=== PATIENT | male | born 1965 | race Caucasian/White ===

== ENCOUNTER 2024-04-29 08:27 | Inpatient (IN) | payer MEDICAID, SELFPAY ==
[2024-04-29] VITALS (17 sets, daily range): BP systolic 122–168; BP diastolic 81–121; PULSE 91–137; RESP 16–92; TEMP 36.5–36.9; O2SAT 94–95; BMI 48.6
--- NOTE | 2024-04-29 08:33 | EKG_ITS ---
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
--- NOTE | 2024-04-29 09:01 | PD.EDRME ---
Rapid Medical Screening Exam [facility] Arrival date/time: 04/29/24 08:27 58-year-old male with no known medical history presents to the emergency room with a chief complaint of shortness of breath with exertion and also when laying down. Patient states he also wakes up with swelling to his bilateral extremities. Patient states he smokes 3 packs of cigarettes a day, and has not seen a doctor in years. Patient denies any chest pain or abdominal pain. I have greeted and performed a focused initial assessment of this patient. A comprehensive ED assessment and evaluation of the patient, analysis of all test results, and completion of the medical decision making process will be conducted by additional ED providers. Chief Complaint: Shortness of Breath/Dyspnea Time Seen by Provider: 04/29/24 09:15 Vital signs: Vital Signs Temperature 97.8 F 04/29/24 08:59 Pulse Rate 137 H 04/29/24 08:59 Blood Pressure 168/116 H 04/29/24 08:59 Pulse Oximetry (%) 95 04/29/24 08:59 Oxygen Delivery Method Room Air 04/29/24 08:59 Vital signs reviewed by provider: Yes
--- NOTE | 2024-04-29 09:21 | XR_ITS ---
Examination: AP chest single view TECHNIQUE: AP portable upright chest single view Exam date and time: April 29, 2024 0936 hours INDICATIONS: Shortness of breath today. FINDINGS: Mild heart failure Mild enlargement cardiac contour Prominent vascular congestion Early perihilar edema IMPRESSION: Early heart failure
[2024-04-29] MEDS: DILTIAZEM INJ 5 MG/ML VIAL 5 ML 15 MG IV (09:31)
[2024-04-29 09:46] LABS: Basophils % (Auto) 0 % (0-2.5); Eosinophils % (Auto) 0 % (0-10); Hemoglobin 14.9 g/dL (13.5-16.0); Immature Granulocytes % (Auto) 1 % (0-0); Immature Granulocytes Auto 0.05 Thou/mm3 (0.00-0.00); Lymphocytes # (Auto) 1.3 Thou/mm3 (1.0-4.8); Lymphocytes % (Auto) 13 % (10-50); Mean Corpuscular HGB Conc 31.7 g/dl (31.0-37.0); Mean Corpuscular Hemoglobin 29.9 pg (25.0-35.0); Mean Corpuscular Volume 94 fL (80-100); Monocytes # (Auto) 0.2 Thou/mm3 (0.0-0.8); Monocytes % (Auto) 2 % (0-12); Neutrophils # (Auto) 8.4 Thou/mm3 (1.8-7.7); Neutrophils % (Auto) 84 % (37-80); Nucleated Red Blood Cell % 0 /100 WBC (0); Platelet Count 202 Thou/mm3 (140-440); RDW Standard Deviation 49.5 fL (35.1-43.9); Red Blood Count 4.98 Miln/mm3 (4.50-5.90)
--- NOTE | 2024-04-29 10:01 | PC.NURSE ---
Pt states he has been feeling SOB, reports he had a cough a couple weeks ago, but now only symptom is SOB. States he has been healthy, but does not go to doctor. Pt in agreement w/POC, denies any pain at this time. Call kay in reach.
[2024-04-29 10:05] LABS: INR 1.1 (0.9-1.3); Partial Thromboplastin Time 28.8 Seconds (22.0-36.0); Prothrombin Time 11.6 Seconds (9.0-12.2)
[2024-04-29 10:09] LABS: Alanine Aminotransferase 26 U/L (10-49); Albumin, Serum 4.4 gm/dL (3.5-5.0); Albumin/Globulin Ratio 1.3 (1.2-2.2); Alkaline Phosphatase 98 U/L (46-116); Anion Gap 7 (7-16); Aspartate Amino Transferase 26 U/L (0-34); BUN/Creatinine Ratio 11 Ratio (12-20); Bilirubin,Total 0.4 mg/dL (0.3-1.2); Blood Urea Nitrogen 13 mg/dL (9-23); Calcium 9.4 mg/dL (8.3-10.6); Calcium (Corrected) 9.4 mg/dL (8.5-10.1); Carbon Dioxide 27.1 mMol/L (20.0-31.0); Chloride 108 mMol/L (98-107); Creatinine (Component) 1.2 mg/dL (0.6-1.3); Estimated Creatinine Clearance 95.9 mL/min (>60); Globulin 3.4 gm/dL (2.3-3.5); Glucose 117 mg/dL (74-106); Lipase 28 U/L (12-53); Magnesium 1.8 mg/dL (1.6-2.6); Osmolality,Calculated 284 (275-295); Potassium 4.6 mMol/L (3.4-5.1); Sodium 142 mMol/L (136-145); Total Protein 7.8 gm/dL (5.7-8.2); Troponin I < 0.020 ng/mL (0.0-0.045); eGFR > 60 See Note
--- NOTE | 2024-04-29 11:09 | PD.EDSOB ---
ED SOB =RME/HPI General Chief Complaint: Shortness of Breath/Dyspnea Stated Complaint: SOB worse last night Time Seen by Provider: 04/29/24 09:15 Arrival date/time: 04/29/24 08:27 RME / HPI RME / HPI Narrative: 04/29/24 08:27 58-year-old male with no known medical history presents to the emergency room with a chief complaint of shortness of breath with exertion and also when laying down. Patient states he also wakes up with swelling to his bilateral extremities. Patient states he smokes 3 packs of cigarettes a day, and has not seen a doctor in years. Patient denies any chest pain or abdominal pain. I have greeted and performed a focused initial assessment of this patient. A comprehensive ED assessment and evaluation of the patient, analysis of all test results, and completion of the medical decision making process will be conducted by additional ED providers. DR. MIR BONE ED EVALUATION: 58 year male presents to the Emergency Department with complaint of dyspnea on exertion and shortness of breath when laying down. Symptmos are moderate. Assocated symptoms include bilateral leg edema. Patient denies any chest pain, cough, abdominal pain, vomiting, diarrhea, or any other symptoms at this time. PMHx: Denies any PMHx, surgeries, daily medications, or known allergies. Social Hx: Smokes cigarettes. Related Data Previous Rx's ?Medication ?Instructions ?Recorded apixaban 5 mg tablet (Eliquis) 5 mg PO BID 30 days #60 tabs 05/02/24 diltiazem HCl 240 mg 240 mg PO QDAY #30 caps 05/02/24 capsule,extended release 24 hr (Cardizem CD) fluticasone fur. 100 mcg-umeclid 1 inh inhalation QDAY #28 ea 05/02/24 62.5 mcg-vilant 25 mcg inhalat.powder (Trelegy Ellipta) furosemide 40 mg tablet (Lasix) 40 mg PO QDAY #30 tabs 05/02/24 losartan 25 mg tablet 25 mg PO QDAY 30 days #30 tabs 05/02/24 nicotine 14 mg/24 hr daily 14 mg topical 1XD 28 days #28 ea 05/02/24 transdermal patch (Nicoderm CQ) Allergies Allergy/AdvReac Type Severity Reaction Status Date / Time NKA* Allergy Uncoded 10/19/14 10:43 Review of Systems Review of Systems Systems Reviewed: All systems reviewed, normal except as documented Narrative Review of Systems: GEN: No fever, no chills, no weight loss, + bilateral leg edema EYES: No discharge, no visual changes, no pain HEENT: No ear pain, no congestion, no sore throat PULM: + shortness of breath, no cough, no congestion CV: No chest pain, + dyspnea on exertion, no palpitations GI: No nausea, no vomiting, no diarrhea, no pain, no constipation : No frequency, no urgency and no dysuria MUSC/SKEL: No joint pain, no back pain SKIN: No rash PSYCH: No hallucinations, no depression HEME/LYMPH: No easy bleeding or bruising tendencies NEURO: No weakness, no headache Past Medical History Past Medical History CARDIAC: Negative Cardiac Disorders or Congestive Heart Failure RESPIRATORY: Negative Chronic Obstructive Pulmonary Disease (COPD) or Asthma GENITOURINARY: Negative Renal Disease ENDOCRINE: Negative Diabetes Mellitus Type 1 or Diabetes Mellitus Type 2 HEMATOLOGIC: Negative Sickle Cell Disease Social History SMOKING STATUS: Current every day smoker SUBSTANCE USE: does not use ALCOHOL: Never ED Exam Narrative Physical exam: GENERAL APPEARANCE: alert and oriented x 4, well-developed, well-nourished, no acute distress VITALS: All vitals were reviewed and the pulse ox is 95% on room air, which is normal according to my interpretation. HEENT: Normocephalic, atraumatic; pupils equal, round, reactive to light; EOMI; mucous membranes pink, moist; oropharynx clear NECK: Supple LUNGS: CTABL; no wheezes, no rales, no rhonchi HEART: Regular rate, regular rhythm; normal S1, S2; no murmurs ABDOMEN: non distended; normal BS; soft, no tenderness, no guarding, no rebound; no masses, no organomegaly, no hernia BACK: no CVA tenderness EXTREMITIES: atraumatic; no edema NEUROLOGIC: awake; alert and oriented x4; cranial nerves II-XII grossly intact; no focal sensory or motor deficits PSYCHIATRIC: appropriate mood and affect SKIN: warm, dry, normal color; no rashes Course Course Course Narrative: 1200: Patient was signed out to Dr. Parmar. Past medical, surgical, social and family history reviewed. Vitals and home medications reviewed. Results and treatment plan discussed. They will assume the care of the patient at this time and will follow the patient. Quality Measures none Orders Category Date Time Status Bedside COVID-19 Antigen Test NOW Care 04/29/24 09:01 Completed Bedside Influenza A&B Antigen Test NOW Care 04/29/24 09:[address] Screening NOW Care 04/29/24 12:59 Completed Guest Specialist NOW Care 04/29/24 09:19 Completed EKG (ED ONLY) *Do not use* NOW Care 04/29/24 08:[address] angio chest Stat Exams 04/29/24 12:59 Completed EKG (ED Only) Stat Exams 04/29/24 08:33 Draft XR chest 1V portable Stat Exams 04/29/24 09:21 Completed B-Type Natriuretic Peptide Stat Lab 04/29/24 09:22 Completed CBC Stat Lab 04/29/24 09:22 Completed Comprehensive Metabolic Panel Stat Lab 04/29/24 09:22 Completed Lipase Stat Lab 04/29/24 09:22 Completed Magnesium Stat Lab 04/29/24 09:22 Completed Partial Thromboplastin Time Stat Lab 04/29/24 09:22 Completed Prothrombin Time with INR Stat Lab 04/29/24 09:22 Completed Troponin I Stat Lab 04/29/24 09:22 Completed Diltiazem Inj [Cardizem Inj] Med 04/29/24 13:00 Discontinued 10 mg IV X1 ONE Diltiazem Inj [Cardizem Inj] Med 04/29/24 17:31 Discontinued 10 mg IV X1 ONE Diltiazem Inj [Cardizem Inj] Med 04/29/24 09:22 Discontinued 15 mg IV X1 ONE cloNIDine HCL [Catapres] Med 04/29/24 09:01 Discontinued 0.1 mg PO X1 ONE Vital Signs Vital signs: Vital Signs Temperature 97.8 F 04/29/24 08:59 Pulse Rate 137 H 04/29/24 08:59 Blood Pressure 168/116 H 04/29/24 08:59 Pulse Oximetry (%) 95 04/29/24 08:59 Oxygen Delivery Method Room Air 04/29/24 08:59 Shortness of Breath / Dyspnea MDM Narrative MDM Narrative:: ITari, am scribing for and in the presence of Dr. Stone. Patient data External records reviewed:: None Clinical information provided by:: patient Social determinants that could affect healthcare access:: other (specify) (Smokes cigarettes. ) Patient has the following chronic illnesses:: Denies any PMHx, surgeries, daily medications, or known allergies. How is presenting disease/condition affected by chronic disease/condition?: no chronic disease Evaluation data The following diagnostics were reviewed and interpreted by me:: lab results, radiology exam(s) and EKG tracing(s) Lab and/or radiology exams considered but not ordered:: none Interpretation Summary: Procedure(s): XR chest 1V portable Accession Number(s): [id number] cc: Johann Lugo MD; Esther Stone MD~ Examination: AP chest single view TECHNIQUE: AP portable upright chest single view Exam date and time: April 29, 2024 0936 hours INDICATIONS: Shortness of breath today. FINDINGS: Mild heart failure Mild enlargement cardiac contour Prominent vascular congestion Early perihilar edema IMPRESSION: Early heart failure Dictated By: Johann Lugo MD Medications / Prescriptions Medications or Prescriptions considered but not ordered:: none Medication administrations:: Medication Administration History Discontinued Medications Acetaminophen (Acetaminophen 325 Mg Tablet) 650 mg PO Q6H PRN PRN Reason: Fever >100 or pain 1-3 Stop: 05/29/24 18:26 Apixaban (Apixaban 2.5 Mg Tablet) 5 mg PO BID COUNT INCLUDES THE [facility] Stop: 05/29/24 20:59 Last Admin: 05/02/24 08:34 Dose: 5 mg Documented By: Admin: 05/01/24 20:35 Dose: 5 mg Documented By: Admin: 05/01/24 08:41 Dose: 5 mg Documented By: Admin: 04/30/24 21:17 Dose: 5 mg Documented By: Admin: 04/30/24 08:06 Dose: 5 mg Documented By: Admin: 04/29/24 21:07 Dose: 5 mg Documented By: LONA Azithromycin (Azithromycin 250 Mg Tablet) 500 mg PO X1 ONE Stop: 04/29/24 19:07 Last Admin: 04/29/24 19:27 Dose: 500 mg Documented By: LONA Azithromycin (Azithromycin 250 Mg Tablet) 250 mg PO QDAY COUNT INCLUDES THE [facility] Stop: 05/07/24 08:59 Azithromycin (Azithromycin Inj 500 Mg Vial) Confirm Administered Dose 500 mg IV .STK-MED ONE Stop: 04/30/24 07:54 Last Admin: 04/30/24 08:12 Dose: Not Given Documented By: KAREN Non-Admin Reason: Override Medication Clonidine (Clonidine Hcl 0.1 Mg Tablet) 0.1 mg PO X1 ONE Stop: 04/29/24 09:02 Last Admin: 04/29/24 09:28 Dose: Not Given Documented By: KWAME Non-Admin Reason: Discontinued Diltiazem HCl (Diltiazem Inj 5 Mg/Ml Vial 5 Ml) 15 mg IV X1 ONE Stop: 04/29/24 09:23 Last Admin: 04/29/24 09:31 Dose: 15 mg Documented By: KWAME Diltiazem HCl (Diltiazem Inj 5 Mg/Ml Vial 5 Ml) 10 mg IV X1 ONE Stop: 04/29/24 13:01 Last Admin: 04/29/24 13:33 Dose: 10 mg Documented By: KWAME Diltiazem HCl (Diltiazem Inj 5 Mg/Ml Vial 5 Ml) 10 mg IV X1 ONE Stop: 04/29/24 17:32 Last Admin: 04/29/24 19:36 Dose: 10 mg Documented By: LONA Diltiazem HCl (Diltiazem Cd 120 Mg Capcr) 240 mg PO QDAY COUNT INCLUDES THE [facility] Stop: 05/31/24 12:59 Last Admin: 05/02/24 08:34 Dose: 240 mg Documented By: Admin: 05/01/24 13:33 Dose: 240 mg Documented By: GABRIELA Furosemide (Furosemide Inj 10 Mg/Ml 4ml Vial) 40 mg IVP QDAY COUNT INCLUDES THE [facility] Stop: 05/29/24 18:44 Last Admin: 05/02/24 08:36 Dose: 40 mg Documented By: Admin: 05/01/24 08:41 Dose: 40 mg Documented By: Admin: 04/30/24 08:05 Dose: 40 mg Documented By: Admin: 04/29/24 19:33 Dose: 40 mg Documented By: LONA Heparin Sodium (Porcine) (Heparin Sod Inj 5000 Unit/Ml Vial) 5,000 unit SC Q12H DUSTY Stop: 05/13/24 18:29 Last Admin: 04/29/24 19:31 Dose: 5,000 unit Documented By: LONA Co-signed By: VARINDER Magnesium Sulfate (Magnesium Sulfate Ivpb) 2 gm in 50 mls @ 25 mls/hr IV X1 ONE Stop: 04/29/24 20:34 Last Admin: 04/29/24 20:55 Dose: 25 mls/hr Documented By: LONA Diltiazem HCl 125 mg/ Dextrose 125 mls @ 5 mls/hr IV .Q24H COUNT INCLUDES THE [facility] Stop: 05/29/24 18:37 Last Admin: 04/29/24 20:31 Dose: 5 mg/hr, 5 mls/hr Documented By: LONA Azithromycin 250 mg/ Sodium (Chloride) 250 mls @ 250 mls/hr IV QDAY DUSTY Stop: 05/06/24 18:39 Last Infusion: 05/01/24 13:18 Dose: Infused Documented By: Admin: 05/01/24 08:42 Dose: 250 mls/hr Documented By: Infusion: 04/30/24 11:24 Dose: Infused Documented By: Admin: 04/30/24 10:24 Dose: 250 mls/hr Documented By: Admin: 04/29/24 21:02 Dose: Not Given Documented By: LONA Non-Admin Reason: Other, see note Diltiazem HCl 125 mg/ Dextrose 125 mls @ 10 mls/hr IV .[id number] COUNT INCLUDES THE [facility] Stop: 05/30/24 08:45 Last Admin: 04/30/24 10:22 Dose: 10 mg/hr, 10 mls/hr Documented By: KAREN Diltiazem HCl 125 mg/ Sodium (Chloride) 125 mls @ 10 mls/hr IV .[id number] COUNT INCLUDES THE [facility] Stop: 05/30/24 08:47 Last Admin: 05/01/24 13:17 Dose: Not Given Documented By: GABRIELA Non-Admin Reason: Discontinued Admin: 04/30/24 23:54 Dose: 10 mg/hr, 10 mls/hr Documented By: Infusion: 04/30/24 23:54 Dose: Infused Documented By: Admin: 04/30/24 12:03 Dose: 10 mg/hr, 10 mls/hr Documented By: KAREN Ipratropium [place] (Ipratropium Rt 0.5 Mg/ 2.5 Ml Nebu) 0.5 mg INH Q4HRRT COUNT INCLUDES THE [facility] Stop: 05/29/24 18:59 Last Admin: 04/30/24 07:28 Dose: Not Given Documented By: GATO Non-Admin Reason: Patient Refused Admin: 04/30/24 01:19 Dose: 0.5 mg Documented By: Admin: 04/29/24 22:10 Dose: Not Given Documented By: FAUSTINA Non-Admin Reason: RT unaware Admin: 04/29/24 22:09 Dose: 0.5 mg Documented By: FAUSTINA Ipratropium [employer] [place] (Ipratropium Rt 0.5 Mg/ 2.5 Ml Nebu) 0.5 mg INH Q4HRRT PRN PRN Reason: prn Stop: 05/29/24 18:59 Ipratropium [employer] [place] (Ipratropium Rt 0.5 Mg/ 2.5 Ml Nebu) 0.5 mg INH Q4HRRT PRN; Protocol PRN Reason: SHORTNESS OF BREATH OR WHEEZE Stop: 05/29/24 18:59 Levalbuterol HCl (Levalbuterol Rt 1.25 Mg/0.5 Ml Nebu) 1.25 mg INH Q6HRRT COUNT INCLUDES THE [facility] Stop: 05/29/24 18:59 Last Admin: 04/30/24 07:28 Dose: Not Given Documented By: GATO Non-Admin Reason: Patient Refused Admin: 04/30/24 01:19 Dose: 1.25 mg Documented By: Admin: 04/29/24 22:11 Dose: Not Given Documented By: FAUSTINA Non-Admin Reason: RT unaware Levalbuterol HCl (Levalbuterol Rt 1.25 Mg/0.5 Ml Nebu) 1.25 mg INH Q6HRRT PRN; Protocol PRN Reason: SHORTNESS OF BREATH OR WHEEZE Stop: 05/29/24 18:59 Losartan Potassium (Losartan Potassium 25 Mg Tablet) 25 mg PO QDAY COUNT INCLUDES THE [facility] Stop: 06/01/24 10:14 Last Admin: 05/02/24 12:22 Dose: 25 mg Documented By: DAVID Melatonin (Melatonin 3 Mg Tablet) 6 mg PO [facility] Stop: 06/01/24 20:59 Methylprednisolone Sodium Succinate (Methylprednisolone Sod Succ 40 Mg Vial) 40 mg IVP QDAY COUNT INCLUDES THE [facility] Stop: 05/06/24 18:44 Last Admin: 05/02/24 08:33 Dose: 40 mg Documented By: Admin: 05/01/24 08:41 Dose: 40 mg Documented By: Admin: 04/30/24 08:05 Dose: 40 mg Documented By: Admin: 04/29/24 19:28 Dose: 40 mg Documented By: LONA Nicotine (Nicotine Patch 21 Mg/24 Hr Patch.Td24) 21 mg TOP X1 ONE Stop: 04/29/24 18:03 Last Admin: 04/29/24 20:28 Dose: 21 mg Documented By: LONA Nicotine (Nicotine Patch 21 Mg/24 Hr Patch.Td24) 21 mg TOP X1 ONE Stop: 05/01/24 09:26 Last Admin: 05/01/24 12:34 Dose: 21 mg Documented By: GABRIELA Ondansetron HCl (Ondansetron Inj 2 Mg/Ml Inj 2 Ml) 4 mg IV Q6H PRN; Protocol PRN Reason: NAUSEA OR VOMITING Stop: 05/29/24 18:26 Potassium Chloride (Potassium Chloride 20 Meq Tabcr) 20 meq PO X1 ONE Stop: 05/01/24 07:17 Last Admin: 05/01/24 08:44 Dose: 20 meq Documented By: GABRIELA Sodium Chloride (Sodium Chloride Rt Areli 0.9% 3 Ml Nebu) 3 ml INH PRN PRN PRN Reason: SOLN Stop: 05/29/24 18:26 see above Consultations Consultation(s) initiated? (list below): No Diagnosis Shortness of Breath Differential Diagnosis: acute exacerbation of chronic obstructive airways disease, congestive heart failure, community acquired pneumonia and pulmonary embolism Most likely diagnosis given after review of the tests above:: No official diagnoses at this time, still pending diagnostic tests. Patient signout to Dr. Parmar. Admission Indicated Admission indicated?: not indicated Explain why admission is indicated or not indicated:: No final disposition plan at this time, still pending diagnostic tests. Patient signout to Dr. Parmar. Admission Request Was there a request for admission?: No Disposition Plan Disposition Plan: other (specify) (Patient signout to Dr. Parmar.) Discharge Plan Plan Patient Disposition: Admit Acute Care w/in Hospital Patient condition on transfer: Stable Problem List Clinical Impression: Pulmonary nodule, Atrial flutter, Acute exacerbation of CHF (congestive heart failure)
[2024-04-29 11:39] LABS: B-Type Natriuretic Peptide 212 pg/mL (0-100)
--- NOTE | 2024-04-29 12:59 | XR_ITS ---
Examination: CTA chest with intravenous contrast 2-D reconstructions 3-D reconstructions, vascular Date and time of exam: April 29, 2024 1443 hours INDICATIONS: Onset chest pain SOB today CTDI: vol (mGy) 41.5 DLP: (mGycm) 739 Technique: Multiple axial sections of the thorax have been obtained. 3 mm slice thickness, from below the hemidiaphragms to above the apices of the lungs. Mediastinal and lung density settings have been obtained. 2-D sagittal and coronal reconstructions. 3-D angiographic renderings, 3-D volume renderings, 3D post processing, vascular maximum intensity projections obtained. Contrast administered is 100 cc Isovue-370. Low dose protocols were performed. One or more of the following dose reduction techniques were used; automated exposure control, adjustment of the mA and/or KV according to patient size, use of iterative reconstruction technique. Findings: No thoracic aortic aneurysmal dilatation. No filling defects in the pulmonary artery branches 4 mm pulmonary nodule left upper lobe 2 mm pulmonary nodule right upper lobe 4 mm pulmonary nodule right upper lobe COPD with areas of airspace destruction No lobar pneumonia No focal liver or splenic lesions. No gallstones No hydronephrosis IMPRESSION: COPD Negative for pulmonary artery emboli Noncalcified pulmonary nodules as above, with this study as baseline recommend 6 month follow-up CT chest without contrast
[2024-04-29] MEDS: DILTIAZEM INJ 5 MG/ML VIAL 5 ML 10 MG IV ×2 (13:33→19:36)
--- NOTE | 2024-04-29 14:05 | PD.EDADDENDU ---
Emergency Room Addendum Addendum Narrative: 1200: Care assumed from Dr. Stone, the previous shift emergency physician. Past medical, surgical, social and family history reviewed. Vitals and home medications reviewed. I will assume the care of the patient at this time. Please refer to the emergency department record for history and examination from initial visit.? Physical exam by me shows patient under no acute distress at this time. 1735: Discussed test HPI, PMHx, lab, radiology results and/or management with hospitalist. Will admit for further evaluation and management. Accepts patient for admission. Diagnoses: Pulmonary nodule, atrial flutter, acute exacerbation of CHF RADIOLOGY Procedure(s): CT angio chest Accession Number(s): [id number] cc: Johann Lugo MD; NO PRIMARY/FAMILY,PHYSICIAN; Lis Parmar MD~ Examination: CTA chest with intravenous contrast 2-D reconstructions 3-D reconstructions, vascular Date and time of exam: April 29, 2024 1443 hours INDICATIONS: Onset chest pain SOB today CTDI: vol (mGy) 41.5 DLP: (mGycm) 739 Technique: Multiple axial sections of the thorax have been obtained. 3 mm slice thickness, from below the hemidiaphragms to above the apices of the lungs. Mediastinal and lung density settings have been obtained. 2-D sagittal and coronal reconstructions. 3-D angiographic renderings, 3-D volume renderings, 3D post processing, vascular maximum intensity projections obtained. Contrast administered is 100 cc Isovue-370. Low dose protocols were performed. One or more of the following dose reduction techniques were used; automated exposure control, adjustment of the mA and/or KV according to patient size, use of iterative reconstruction technique. Findings: No thoracic aortic aneurysmal dilatation. No filling defects in the pulmonary artery branches 4 mm pulmonary nodule left upper lobe 2 mm pulmonary nodule right upper lobe 4 mm pulmonary nodule right upper lobe COPD with areas of airspace destruction No lobar pneumonia No focal liver or splenic lesions. No gallstones No hydronephrosis IMPRESSION: COPD Negative for pulmonary artery emboli Noncalcified pulmonary nodules as above, with this study as baseline recommend 6 month follow-up CT chest without contrast Dictated By: Johann Lugo MD
--- NOTE | 2024-04-29 18:35 | ECHO_ITS ---
Transthoracic Echo Report Ht (in): 69 Wt (lb): 329 Exam Location: Echo Lab Status: Emergency Tail Sawyer: Zhane Floyd Indications: Procedure Performed: BP: 124 / 78 HR: 72 Technical Quality: Very technically difficult study MEASUREMENTS (Male / Female) Normal Values 2D ECHO LV Ejection Fraction MOD 4C 46.6 % LV Cardiac Index MOD 4C 2020.2 cm?/min?m? LV Ejection Fraction 4C AL 46.6 % LV Cardiac Index 4C AL 2083.5 cm?/min?m? LA Volume Index 24.4 cm?/m? 16 - 28 cm?/m? DOPPLER AV Peak Velocity 139.0 cm/s AV Peak Gradient 7.7 mmHg AV Mean Gradient 4.0 mmHg AV Velocity Time Integral 21.6 cm LVOT Peak Velocity 139.0 cm/s LVOT Peak Gradient 7.7 mmHg LVOT Velocity Time Integral 27.3 cm FINDINGS Left Ventricle Normal left ventricular size, wall thickness, systolic function with no obvious regional wall motion abnormalities. Normal left ventricular diastolic filling pattern for age. The ejection fraction is visually estimated at 55-60%. Right Ventricle The right ventricle is normal in size and systolic function. Left Atrium The left atrium is normal by two-dimensional, color flow and Doppler imaging with no structural abnormalities, no thrombus formation present. Right Atrium The right atrium is normal by two-dimensional imaging, color flow and Doppler imaging with no structural abnormalities, no thrombus formation present. Atrial Septum The interatrial septum appears normal with no evidence of a shunt. Aorta The aorta is normal by two-dimensional, color flow and Doppler interrogation. Mitral Valve The mitral valve is normal by two-dimensional, color flow and Doppler interrogation. There is no significant mitral valve regurgitation, stenosis or prolapse. Aortic Valve The aortic valve is trileaflet and normal by two-dimensional, color flow and Doppler interrogation. There is no significant aortic valve regurgitation. Tricuspid Valve The tricuspid valve is normal by two-dimensional, color flow and Doppler interrogation. There is no significant tricuspid valve regurgitation. Pulmonic Valve The pulmonic valve is not well visualized. There is no significant pulmonic valve regurgitation. Vessels The pulmonary artery appears normal. The inferior vena cava pulmonary and hepatic veins appear normal. Pericardium The pericardium is normal by two-dimensional imaging. There is no significant pericardial effusion. CONCLUSIONS Indiction; Afib w RVR Tercxhincally difficult study with limited iamges. Normal LV size and function. Estimated EF 55-60%. Diastilic dysfunction present but cannot garde due to Afib. Normal RV size and function. Trcae TR and MR. Mildly dilated LA. Luis Almanza (Electronically Signed) Final Date: 01 May 2024 12:40
--- NOTE | 2024-04-29 18:39 | ESHP_ITS ---
Documentation for date of: 04/29/24 HPI History of Present Illness History of present illness: Joo is a 58 y/o male with past medical history of morbid obesity comes in for an evaluation of shortness of breath that has been worsening with associated dry cough but no chest pain. Patient reports that he has been feeling worse over some time now with his shortness of breath that used to be more so on exertion, however now it is also present at rest. He denies having any chest pain or palpitations at the time. He says that he was sick about a week ago with some upper respiratory infections, but denies any other sick contacts. Says that his shortness of breath was associated with a worsening cough that he started describing as he felt he was dry heaving as nothing was coming out. He says he took a steroid pill from his sister in which she uses for possible COPD but it did not help. He says he has had a chronic cough for a while but this has been worsening as well. He says that he also notices shortness of breath while laying down but denies having any leg swelling. 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 Denies using a CPAP. Patient says that he does not go to doctors and has been pretty healthy for his whole life. He says that he gets short of breath when climbing up stairs, while at work, and would get short of breath with walking 1 block. He denies ever having symptoms as bad as this until now. As he had worsened he thought it would be best as his brother drive him to the ER to get evaluated. Denies a history of COPD and never seeing a stitch separator. Denies ever having a blood clot in his lungs or his legs. Says he has bowel movements every 1 to 2 days, can be up to 3 days when he drives trucks. ED course: Patient arrived to the ED with a temperature of 98, heart rate of 137, blood pressure of 160/116, saturating at 95% room air. He was worked up and was found to have a sodium of 142, potassium 4.6, bicarb of 27, BUN/creatinine of 13 and 1.2, glucose of 117, white count of 10, hemoglobin 15, magnesium 1.8, AST ALT 20 and 26 respectively, BNP of 212, lipase of 28. Chest x-ray did show some pulmonary edema and vascular congestion as well as early heart failure pattern. EKG was done and showed a flutter pattern with a 2-1 block. A second EKG was obtained which showed A-fib with RVR rate in the 135's. Patient was given Cardizem 10 mg x 1 and then given Cardizem 15 mg x 1. Medicine was consulted and patient was admitted for further evaluation Past medical history: Morbid obesity Surgeries: None Allergies no known allergies Meds: Does not take any medicines Family history: Dad of lung cancer, his mother had a triple vessel bypass and valve replacement of some sort and shortly after it broke in 2000, sister may have COPD, diabetes runs in family as well, mother may have also had hypertension Social hx: Patient was born in [place], partly raised in [place] then moved to a town [place] of [facility]. He returned to [place] about 15 years ago. 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 Patient has smoked for over 45 years about 2 packs a day (90 pack years). 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 He drives trucks for about 11 to 14 hours a day. He does endorse eating a lot of red meat and eating bad. He also says he eats a lot of carbs including bread. Denies any IV drug use, however has used LSD and cocaine in the past. He also says that he has never been a heavy drinker and does not drink anymore at all. He grew up partly in [place] as well Review of Systems Review of Systems Narrative Review of Systems: Constitutional: No fever, chills, fatigue, weakness, weight loss HEENT: No eye pain, vision loss, ear pain, hearing loss, dysphagia, Cardiovascular: No chest pain, palpitations, edema, pain with walking Respiratory: Positive cough, positive shortness of breath, no wheezing GI: No NVD, abdominal pain, constipation, blood in stool, loss of appetite, heartburn Extremities: No presence of pitting edema MSK: No back pain, joint pain, joint swelling Neuro: No dizziness, numbness, weakness, headaches, seizures, tremors Psych: No anxiety, depression Exam Vital Signs Temp Pulse Resp BP Pulse Ox O2 Del Method 98.5 F 109 H 20 159/101 H 95 Room Air 04/29/24 18:25 04/29/24 18:25 04/29/24 18:25 04/29/24 18:25 04/29/24 18:25 04/29/24 18:25 Narrative Exam General: AAOx3, NAD, wearing a hat, pleasant bearded male looks older than he is, morbidly obese HEENT: Moist mucous membranes, conjunctiva clear, EOMI, PERRLA, no teeth, pupillary reflex intact bilaterally Cardiovascular: S1, S2, radial pulses +2 bilat, irregularly irregular, tachycardic Pulmonary: Diffuse wheezing heard throughout lung amanda, no crackles heard on auscultation, no cough was present at the time GI: Bowel sounds present, however patient does feel a bit firm unlikely distended Extremities: No presence of trace or pitting edema in lower extremities bilaterally, dorsalis pedis pulses +2 bilaterally Neuro: AAOx3, no focal motor or sensory deficits in the UE or LE bilat Psych: Good judgement, thought and behavior. Cooperative Results: Labs 04/30/24 04:35 04/30/24 04:35 Labs: Short CBC 04/29/24 Range/Units 09:22 WBC 10.0 (3.8-10.6) Thou/mm3 Hgb 14.9 (13.5-16.0) g/dL Hct 47.0 (41.0-53.0) % Plt Count 202 (140-440) Thou/mm3 BMP 04/29/24 09:22 Sodium 142 Potassium 4.6 Chloride 108 H Carbon Dioxide 27.1 BUN 13 Creatinine 1.2 Glucose 117 H Calcium 9.4 Cardiac Enzymes 04/29/24 Range/Units 09:22 Troponin I < 0.020 (0.0-0.045) ng/mL Liver Function 04/29/24 Range/Units 09:22 Total Bilirubin 0.4 (0.3-1.2) mg/dL AST 26 (0-34) U/L ALT 26 (10-49) U/L Alkaline Phosphatase 98 (46-116) U/L Albumin 4.4 (3.5-5.0) gm/dL Quality Measures Quality Measures none Medications Home Medications and Allergies Home Medications ?Medication ?Instructions ?Recorded ?Confirmed ?Type No Known Home Medications 04/30/2410/15 History Allergies Allergy/AdvReac Type Severity Reaction Status Date / Time NKA* Allergy Uncoded 01/09/14 10:43 Visit Medications Acetaminophen (Acetaminophen 325 Mg Tablet) 650 mg PO Q6H PRN PRN Reason: Fever >100 or pain 1-3 Stop: 05/29/24 18:26 Furosemide (Furosemide Inj 10 Mg/Ml 4ml Vial) 40 mg IVP QDAY [facility] Stop: 05/29/24 18:44 Heparin Sodium (Porcine) (Heparin Sod Inj 5000 Unit/Ml Vial) 5,000 unit SC Q12H DUSTY Stop: 05/13/24 18:29 Magnesium Sulfate (Magnesium Sulfate Ivpb) 2 gm in 50 mls @ 25 mls/hr IV X1 ONE Stop: 04/29/24 20:34 Diltiazem HCl (Diltiazem In D5w 125 Mg) 125 mg in 125 mls @ 5 mls/hr IV .Q24H [facility] Stop: 05/29/24 18:37 Ipratropium [place] (Ipratropium Rt 0.5 Mg/ 2.5 Ml Nebu) 0.5 mg INH Q4HRRT DUSTY Stop: 05/29/24 18:59 Levalbuterol HCl (Levalbuterol Rt 1.25 Mg/0.5 Ml Nebu) 1.25 mg INH Q6HRRT DUSTY Stop: 05/29/24 18:59 Methylprednisolone Sodium Succinate (Methylprednisolone Sod Succ 40 Mg Vial) 40 mg IVP QDAY [facility] Stop: 05/06/24 18:44 Ondansetron HCl (Ondansetron Inj 2 Mg/Ml Inj 2 Ml) 4 mg IV Q6H PRN; Protocol PRN Reason: NAUSEA OR VOMITING Stop: 05/29/24 18:26 Sodium Chloride (Sodium Chloride Rt Areli 0.9% 3 Ml Nebu) 3 ml INH PRN PRN PRN Reason: SOLN Stop: 05/29/24 18:26 Discontinued Medications Clonidine (Clonidine Hcl 0.1 Mg Tablet) 0.1 mg PO X1 ONE Stop: 04/29/24 09:02 Last Admin: 04/29/24 09:28 Dose: Not Given Diltiazem HCl (Diltiazem Inj 5 Mg/Ml Vial 5 Ml) 15 mg IV X1 ONE Stop: 04/29/24 09:23 Last Admin: 04/29/24 09:31 Dose: 15 mg Diltiazem HCl (Diltiazem Inj 5 Mg/Ml Vial 5 Ml) 10 mg IV X1 ONE Stop: 04/29/24 13:01 Last Admin: 04/29/24 13:33 Dose: 10 mg Diltiazem HCl (Diltiazem Inj 5 Mg/Ml Vial 5 Ml) 10 mg IV X1 ONE Stop: 04/29/24 17:32 Nicotine (Nicotine Patch 21 Mg/24 Hr Patch.Td24) 21 mg TOP X1 ONE Stop: 04/29/24 18:03 Assessment & Plan Plan Assessment Joo is a 58 y/o male with past medical history of morbid obesity who was admitted for A-fib with RVR and possible COPD exacerbation. #A-fib with RVR #A flutter, resolved [id number] HAS-BLED:0 Rate:130s Rhythm: Irregularly irregular AC: None Pt may be in decompensated heart failure at this time If pt has HFpEF -> Cardizem If HFrEF and not in decompensation -> Beta blockers (Coreg 3.125 p.o. twice daily or metoprolol succinate 25 p.o., can be given up to 200) If cannot receive beta-blockers, go with Amio or digoxin Pt has no documented history, however, [id number] and HAS-BLED scores likely to be increased once we establish diagnoses Plan: ?Follow-up echo ?Cardiology consulted, appreciate recs ?Keep potassium and magnesium above 4 and 2 respectively to avoid any cardiac arrhythmias ?Continue with Dilt drip, 5 mg/hr, titrate up to ten if blood pressure is able ?Start Eliquis 5 mg BID PO #? Acute decompensated heart failure Plan: ?Cardiology consulted, appreciate recs ?Strict JULIANN's ?Daily weights ?Lasix 40 mg IV daily ?Follow up with Echo ?Keep potassium and magnesium above 4 and 2 respectively to avoid any cardiac arrhythmias #? COPD exacerbation #? Obesity hypoventilation syndrome Patient does have extensive smoking history roughly 90 pack years Patient does not use oxygen at home Patient does seem to be wheezing on physical exam Patient has been getting more short of breath Patient will need formal PFT for diagnosis Lungs did not seem hyperexpanded on chest x-ray Plan: ?Solu-Medrol 40 mg IV daily ?Oxygen as needed to maintain 88 to 92% ?Levalbuterol from nebulizer breathing treatments ?Azithromycin 500 mg loading, 250 mg after #Health Maintenance Disposition: Telemetry DVT prophylaxis: Heparin q12h GI prophylaxis:None indicated at this time Diet:Cardiac CODE STATUS:Full Patient seen and care discussed with my senior resident, Dr. Hernández, and my attending physician, Dr. Luis Lomax, PGY-1 Attending Provider Attestation/Addendum I reviewed labs, imaging, EKG, home medications and prior available records. Face to face evaluation was performed by me. I have personally examined the patient and discussed assessment and plan with the IM team. I reviewed the resident note and agree with the plan with exceptions as below. Atrial fibrillation/flutter with RVR New onset CHF COPD exacerbation Tobacco use Morbid obesity Started diltiazem drip Start IV Lasix Start DuoNebs Start systemic corticosteroids Ordered echocardiogram Consult cardiology Counseled the patient regarding the importance of smoking cessation
[2024-04-29] MEDS: AZITHROMYCIN 250 MG TABLET 500 MG PO (19:27)
[2024-04-29] MEDS: HEPARIN SOD INJ 5000 UNIT/ML VIAL SC (19:31)
[2024-04-29] MEDS: FUROSEMIDE INJ 10 MG/ML 4ML VIAL 40 MG IVP (19:33)
[2024-04-29] MEDS: NICOTINE PATCH 21 MG/24 HR PATCH.TD24 TOP (20:28)
[2024-04-29] MEDS: DILTIAZEM INJ 125 MG in DEXTROSE 5%-WATER 100 ML IV (20:31)
[2024-04-29] MEDS: Magnesium Sulfate 2 GM Ivpb 2 GM/50 ML BAG IV (20:55)
--- NOTE | 2024-04-29 21:03 | PC.NURSE ---
IV Zithromax not given, Hospitalist infomred. 500 mg po givne.
[2024-04-29] MEDS: APIXABAN 2.5 MG TABLET 5 MG PO (21:07)
[2024-04-29] MEDS: IPRATROPIUM RT 0.5 MG/ 2.5 ML NEBU INH (22:09)
[2024-04-30] VITALS (13 sets, daily range): BP systolic 123–150; BP diastolic 70–97; PULSE 69–106; RESP 17–96; TEMP 36.1–36.8; O2SAT 92–96
[2024-04-30] MEDS: IPRATROPIUM RT 0.5 MG/ 2.5 ML NEBU INH (01:19)
[2024-04-30] MEDS: LEVALBUTEROL RT 1.25 MG/0.5 ML NEBU INH (01:19)
[2024-04-30 05:42] LABS: Basophils % (Auto) 0 % (0-2.5); Eosinophils % (Auto) 0 % (0-10); Hematocrit 47.8 % (41.0-53.0); Hemoglobin 15.3 g/dL (13.5-16.0); Immature Granulocytes % (Auto) 0 % (0-0); Immature Granulocytes Auto 0.03 Thou/mm3 (0.00-0.00); Lymphocytes # (Auto) 1.7 Thou/mm3 (1.0-4.8); Lymphocytes % (Auto) 17 % (10-50); Mean Corpuscular Hemoglobin 30.2 pg (25.0-35.0); Mean Corpuscular Volume 94 fL (80-100); Monocytes # (Auto) 0.3 Thou/mm3 (0.0-0.8); Monocytes % (Auto) 3 % (0-12); Neutrophils # (Auto) 7.9 Thou/mm3 (1.8-7.7); Neutrophils % (Auto) 80 % (37-80); Nucleated Red Blood Cell % 0 /100 WBC (0); Platelet Count 161 Thou/mm3 (140-440); Red Blood Count 5.07 Miln/mm3 (4.50-5.90); White Blood Count 9.9 Thou/mm3 (3.8-10.6)
[2024-04-30 06:02] LABS: INR 1.1 (0.9-1.3); Partial Thromboplastin Time 29.8 Seconds (22.0-36.0); Prothrombin Time 11.5 Seconds (9.0-12.2)
[2024-04-30 06:07] LABS: Alanine Aminotransferase 23 U/L (10-49); Albumin, Serum 4.5 gm/dL (3.5-5.0); Albumin/Globulin Ratio 1.6 (1.2-2.2); Alkaline Phosphatase 96 U/L (46-116); Anion Gap 5 (7-16); Aspartate Amino Transferase 18 U/L (0-34); BUN/Creatinine Ratio 16 Ratio (12-20); Bilirubin,Total 0.3 mg/dL (0.3-1.2); Blood Urea Nitrogen 14 mg/dL (9-23); Calcium 9.3 mg/dL (8.3-10.6); Calcium (Corrected) 9.3 mg/dL (8.5-10.1); Cardiac Risk Estimate 3.8 RATIO (4.0-6.7); Chloride 105 mMol/L (98-107); Cholesterol 136 mg/dL (132-200); Creatinine (Component) 0.9 mg/dL (0.6-1.3); Estimated Creatinine Clearance 127.8 mL/min (>60); Globulin 2.9 gm/dL (2.3-3.5); Glucose 113 mg/dL (74-106); HDL Cholesterol 36 mg/dL (40-60); LDL Cholesterol,Calculated 88 mg/dL (0-130); Magnesium 2.3 mg/dL (1.6-2.6); Osmolality,Calculated 277 (275-295); Phosphorous 4.2 mg/dL (2.4-5.1); Potassium 4.7 mMol/L (3.4-5.1); Sodium 138 mMol/L (136-145); Thyroid Stimulating Hormone 0.81 uIU/mL (0.55-4.78); Total Protein 7.4 gm/dL (5.7-8.2); Triglycerides 60 mg/dL (30-150); eGFR > 60 See Note
--- NOTE | 2024-04-30 07:34 | PC.NURSE ---
Pt. refusing bed alarm but pt. and night RN Lori report pt. is steady on feet. Pt. educated on fall precautions and agrees to call for help if needed.
[2024-04-30] MEDS: FUROSEMIDE INJ 10 MG/ML 4ML VIAL 40 MG IVP (08:05)
[2024-04-30] MEDS: APIXABAN 2.5 MG TABLET 5 MG PO ×2 (08:06→21:17)
[2024-04-30 09:54] LABS: Glucose Estimated Average 114 mg/dL (80-131); Hemoglobin A1C 5.6 % Hgb (4.8-6.0)
--- NOTE | 2024-04-30 10:14 | PD.RESPRO ---
Documentation for date of: 04/30/24 Subjective Subjective Interval history: 04/30: Exam Vital Signs Temp Pulse Resp BP Pulse Ox O2 Del Method 97.8 F 81 20 124/97 H 95 Room Air 04/30/24 04:00 04/30/24 08:05 04/30/24 07:28 04/30/24 08:05 04/30/24 07:28 04/30/24 04:00 Objective Labs 04/30/24 04:35 04/30/24 04:35 Labs: Laboratory Results - last 24 hr 04/29/24 04/30/24 09:22 04:35 WBC 9.9 RBC 5.07 Hgb 15.3 Hct 47.8 MCV 94 MCH 30.2 MCHC 32.0 RDW Std Deviation 49.0 H Plt Count 161 D Neut % (Auto) 80 Lymph % (Auto) 17 [place] % (Auto) 3 Eos % (Auto) 0 Baso % (Auto) 0 Neut # (Auto) 7.9 H Lymph # (Auto) 1.7 [place] # (Auto) 0.3 Eos # (Auto) 0.0 Baso # (Auto) 0.0 Immature Gran # (Auto) 0.03 H Absolute Nucleated RBC 0.00 Immature Gran % 0 Nucleated RBC % 0 PT 11.5 INR 1.1 APTT 29.8 Sodium 138 Potassium 4.7 Chloride 105 Carbon Dioxide 28.0 Anion Gap 5 L BUN 14 Creatinine 0.9 Estim Creat Clear Calc 127.8 eGFR > 60 BUN/Creatinine Ratio [address] Glu mg/dL 114 Hemoglobin A1c 5.6 Calculated Osmolality 277 Calcium 9.3 Corrected Calcium 9.3 Phosphorus 4.2 Magnesium 2.3 Total Bilirubin 0.3 AST 18 ALT 23 Alkaline Phosphatase 96 B-Natriuretic Peptide 212 H Total Protein 7.4 Albumin 4.5 Globulin 2.9 Albumin/Globulin Ratio 1.6 Triglycerides 60 Cholesterol 136 LDL Cholesterol, Calc 88 HDL Cholesterol 36 L Cholesterol/HDL Ratio 3.8 L TSH 0.81 Quality Measures Quality Measures none Assessment & Plan Assessment Current Active Medications: Generic Name Dose Route Start Last Admin Trade Name Freq PRN Reason Stop Dose Admin Acetaminophen 650 mg 04/29/24 18:27 Acetaminophen 325 Mg Tablet PO 05/29/24 18:26 Q6H PRN Fever >100 or pain 1-3 Apixaban 5 mg 04/29/24 21:00 04/30/24 08:06 Apixaban 2.5 Mg Tablet PO 05/29/24 20:59 5 mg BID DUSTY Administration Furosemide 40 mg 04/29/24 18:45 04/30/24 08:05 Furosemide Inj 10 Mg/Ml 4ml Vial IVP 05/29/24 18:44 40 mg QDAY DUSTY Administration Azithromycin 250 mg/ Sodium 250 mls @ 250 mls/hr 04/29/24 18:40 04/29/24 21:02 Chloride IV 05/06/24 18:39 Not Given QDAY DUSTY Diltiazem HCl 125 mg/ Dextrose 125 mls @ 10 mls/hr 04/30/24 08:48 IV 05/30/24 08:45 .[id number] DUSTY 10 MG/HR Ipratropium [place] 0.5 mg 04/30/24 09:16 Ipratropium Rt 0.5 Mg/ 2.5 Ml Nebu INH 05/29/24 18:59 Q4HRRT PRN SHORTNESS OF BREATH OR WHEEZE Protocol Levalbuterol HCl 1.25 mg 04/30/24 09:14 Levalbuterol Rt 1.25 Mg/0.5 Ml Nebu INH 05/29/24 18:59 Q6HRRT PRN SHORTNESS OF BREATH OR WHEEZE Protocol Methylprednisolone Sodium Succinate 40 mg 04/29/24 18:45 04/30/24 08:05 Methylprednisolone Sod Succ 40 Mg Vial IVP 05/06/24 18:44 40 mg QDAY DUSTY Administration Ondansetron HCl 4 mg 04/29/24 18:27 Ondansetron Inj 2 Mg/Ml Inj 2 Ml IV 05/29/24 18:26 Q6H PRN NAUSEA OR VOMITING Protocol Sodium Chloride 3 ml 04/29/24 18:27 Sodium Chloride Rt Areli 0.9% 3 Ml Nebu INH 05/29/24 18:26 PRN PRN SOLN
--- NOTE | 2024-04-30 10:16 | ESCONSULT_ITS ---
HPI Data of Consult Requesting Physician: Andrés Smith MD Admitting Provider: Andrés Smith MD Attending Provider: Andrés Smith MD Primary Care Provider: Physician No Primary/Family Consult Narrative History of present illness: Mr. Ge is a 58-year-old male with no significant past medical history other than morbid obesity and heavy tobacco dependency presenting to the ED complaining of worsening shortness of breath with mild dry cough. Patient states that he recently noticed that he has been increasingly short of breath especially on exertion however in the last couple days he noticed that he has been also short of breath while resting. Patient denies any chest pain, pressure, palpitations, dizziness, or syncopal episodes. 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 However he did mention he had flulike symptoms about a week ago for which he did not take any antibiotics or seek medical attention. Although patient denies any cardiac problems or denies seeing a clarity developer, he states for some time he has been fatigued even though he get a full night of rest patient denies ever being diagnosed with obstructive sleep apnea and denies ever using a CPAP. Patient also has never been diagnosed with COPD however patient admits to smoking 2 packs of cigarettes daily for the past 47 years. Patient is heavily counseled against smoking and the harm and damage it can cause to his major arteries and his heart. Patient mentioned he understands the consequences of smoking however he has the desire to quit smoking but he does not mentally feel ready or capable of quitting. Patient denies using any inhalers or home oxygen. 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 Which he contributes the main reason why he spoke so much is because when he is on these long drives he changed smokes and lites is cigarette after cigarette. ED course On arrival in the ED patient blood pressure is 160/116, heart rate of 137, saturating on room air. Lab findings include hemoglobin 14.9, hematocrit 47, sodium 142, potassium 4.6, chloride 108, blood glucose 117, BNP 212 EKG: A-fib with RVR with nonspecific T wave abnormality Chest x-ray: Findings include mild/early heart failure, mild enlargement cardiac contour or, prominent vascular congestion, early perihilar edema Chest CTA: COPD, negative for pulmonary artery emboli, noncalcified pulmonary nodules (4 mm in the left upper lobe, 2 mm and 4 mm in the right upper lobe) PMH: Morbid obesity, tobacco dependence Family history: Pt is not and does not have children. Mom with cardiac history of hypertension, triple vessel bypass in valve replacement. Dad: Lung cancer cc:: cc: Andrés Smith MD Review of Systems Review of Systems Systems Reviewed: All systems reviewed, normal except as documented Exam Vital Signs Temp Pulse Resp BP Pulse Ox O2 Del Method 97.8 F 81 20 124/97 H 95 Room Air 04/30/24 04:00 04/30/24 08:05 04/30/24 07:28 04/30/24 08:05 04/30/24 07:28 04/30/24 04:00 Narrative Exam GENERAL: morbidly obese male, A&Ox3 . Awake, Not in acute distress, saturating on room air NEURO: no focal neurological deficits HEENT: Atraumatic, Normocephalic. mucous membranes moist. Eyes open, symmetrical, & clear HEART: Normal Heart Sounds LUNGS: Clear to auscultation with no wheezing or crackles. ABDOMEN: soft, non-distended, non-tender, bowel sounds heard, no guarding or rebound tenderness SKIN: No Rash or ecchymoses EXTREMITIES: trace pitting edema bilaterally on LE, tenderness, able to move all 4 extremities, pedal pulses palpated Results Labs 05/01/24 04:30 05/01/24 04:30 Labs: Short CBC 04/30/24 Range/Units 04:35 WBC 9.9 (3.8-10.6) Thou/mm3 Hgb 15.3 (13.5-16.0) g/dL Hct 47.8 (41.0-53.0) % Plt Count 161 D (140-440) Thou/mm3 BMP 04/30/24 04:35 Sodium 138 Potassium 4.7 Chloride 105 Carbon Dioxide 28.0 BUN 14 Creatinine 0.9 Glucose 113 H Calcium 9.3 Liver Function 04/30/24 Range/Units 04:35 Total Bilirubin 0.3 (0.3-1.2) mg/dL AST 18 (0-34) U/L ALT 23 (10-49) U/L Alkaline Phosphatase 96 (46-116) U/L Albumin 4.5 (3.5-5.0) gm/dL Quality Measures Quality Measures none Medications Home Medications and Allergies Home Medications ?Medication ?Instructions ?Recorded ?Confirmed ?Type No Known Home Medications 04/30/2410/15 History Allergies Allergy/AdvReac Type Severity Reaction Status Date / Time NKA* Allergy Uncoded 01/09/14 10:43 Visit Medications Acetaminophen (Acetaminophen 325 Mg Tablet) 650 mg PO Q6H PRN PRN Reason: Fever >100 or pain 1-3 Stop: 05/29/24 18:26 Apixaban (Apixaban 2.5 Mg Tablet) 5 mg PO BID [facility] Stop: 05/29/24 20:59 Last Admin: 04/30/24 08:06 Dose: 5 mg Furosemide (Furosemide Inj 10 Mg/Ml 4ml Vial) 40 mg IVP QDAY [facility] Stop: 05/29/24 18:44 Last Admin: 04/30/24 08:05 Dose: 40 mg Azithromycin 250 mg/ Sodium (Chloride) 250 mls @ 250 mls/hr IV QDAY [facility] Stop: 05/06/24 18:39 Last Admin: 04/29/24 21:02 Dose: Not Given Diltiazem HCl 125 mg/ Dextrose 125 mls @ 10 mls/hr IV .[id number] [facility] Stop: 05/30/24 08:45 Ipratropium [place] (Ipratropium Rt 0.5 Mg/ 2.5 Ml Nebu) 0.5 mg INH Q4HRRT PRN; Protocol PRN Reason: SHORTNESS OF BREATH OR WHEEZE Stop: 05/29/24 18:59 Levalbuterol HCl (Levalbuterol Rt 1.25 Mg/0.5 Ml Nebu) 1.25 mg INH Q6HRRT PRN; Protocol PRN Reason: SHORTNESS OF BREATH OR WHEEZE Stop: 05/29/24 18:59 Methylprednisolone Sodium Succinate (Methylprednisolone Sod Succ 40 Mg Vial) 40 mg IVP QDAY [facility] Stop: 05/06/24 18:44 Last Admin: 04/30/24 08:05 Dose: 40 mg Ondansetron HCl (Ondansetron Inj 2 Mg/Ml Inj 2 Ml) 4 mg IV Q6H PRN; Protocol PRN Reason: NAUSEA OR VOMITING Stop: 05/29/24 18:26 Sodium Chloride (Sodium Chloride Rt Areli 0.9% 3 Ml Nebu) 3 ml INH PRN PRN PRN Reason: SOLN Stop: 05/29/24 18:26 Discontinued Medications Azithromycin (Azithromycin 250 Mg Tablet) 500 mg PO X1 ONE Stop: 04/29/24 19:07 Last Admin: 04/29/24 19:27 Dose: 500 mg Azithromycin (Azithromycin 250 Mg Tablet) 250 mg PO QDAY [facility] Stop: 05/07/24 08:59 Clonidine (Clonidine Hcl 0.1 Mg Tablet) 0.1 mg PO X1 ONE Stop: 04/29/24 09:02 Last Admin: 04/29/24 09:28 Dose: Not Given Diltiazem HCl (Diltiazem Inj 5 Mg/Ml Vial 5 Ml) 15 mg IV X1 ONE Stop: 04/29/24 09:23 Last Admin: 04/29/24 09:31 Dose: 15 mg Diltiazem HCl (Diltiazem Inj 5 Mg/Ml Vial 5 Ml) 10 mg IV X1 ONE Stop: 04/29/24 13:01 Last Admin: 04/29/24 13:33 Dose: 10 mg Diltiazem HCl (Diltiazem Inj 5 Mg/Ml Vial 5 Ml) 10 mg IV X1 ONE Stop: 04/29/24 17:32 Last Admin: 04/29/24 19:36 Dose: 10 mg Heparin Sodium (Porcine) (Heparin Sod Inj 5000 Unit/Ml Vial) 5,000 unit SC Q12H [facility] Stop: 05/13/24 18:29 Last Admin: 04/29/24 19:31 Dose: 5,000 unit Magnesium Sulfate (Magnesium Sulfate Ivpb) 2 gm in 50 mls @ 25 mls/hr IV X1 ONE Stop: 04/29/24 20:34 Last Admin: 04/29/24 20:55 Dose: 25 mls/hr Diltiazem HCl 125 mg/ Dextrose 125 mls @ 5 mls/hr IV .Q24H [facility] Stop: 05/29/24 18:37 Last Admin: 04/29/24 20:31 Dose: 5 mg/hr, 5 mls/hr Ipratropium [place] (Ipratropium Rt 0.5 Mg/ 2.5 Ml Nebu) 0.5 mg INH Q4HRRT [facility] Stop: 05/29/24 18:59 Last Admin: 04/30/24 07:28 Dose: Not Given Ipratropium [place] (Ipratropium Rt 0.5 Mg/ 2.5 Ml Nebu) 0.5 mg INH Q4HRRT PRN PRN Reason: prn Stop: 05/29/24 18:59 Levalbuterol HCl (Levalbuterol Rt 1.25 Mg/0.5 Ml Nebu) 1.25 mg INH Q6HRRT DUSTY Stop: 05/29/24 18:59 Last Admin: 04/30/24 07:28 Dose: Not Given Nicotine (Nicotine Patch 21 Mg/24 Hr Patch.Td24) 21 mg TOP X1 ONE Stop: 04/29/24 18:03 Last Admin: 04/29/24 20:28 Dose: 21 mg Assessment & Plan Plan Mr. Ge is a 58-year-old male with no significant past medical history other than morbid obesity and heavy tobacco dependency presenting to the ED complaining of worsening shortness of breath with mild dry cough. Patient states that he recently noticed that he has been increasingly short of breath especially on exertion however in the last couple days he noticed that he has been also short of breath while resting. Cardiology is consulted for new A-fib with RVR and possible a flutter, Pt is on diltiazam drip at 10mg/hr #A-fib with concurrent A-flutter Pt was initially HR was in the 130's EKG findings and tele montiored reviewed and appears pt remain in Afib with RVR with concurrent a flutter at times. Pt was started on diltiazam drip 5mg/hr yesterday which is increased to 10mg/hr as Pts HR jumps to 150's -keep potassium above 5 and magnesium above 2 at all times. [id number]:0, pt will not require anticoagulation for afib at this time as Pt is at low risk for cardio embolic event. 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 Pt is started on eliquis 5mg BID PO due to his risk factors. #Acute decompensated heart failure- although pt. doesn't appear to be in fluid overload. there is trace pitting edema bilaterally in lower extremities. Will continue lasix 40mg IV daily. echocardiogrma is ordered #Tobacco use disorder- Pt admits to smoking 2 packs/day for 47 years. Pt is heavily counseled against smoking and educated on the harm it causes on his arteries and heart. Nicotine patch is ordered will inpatient. Primary hospitalist team to consider nicotine patch taper upon discharge. 21mg x 2 weeks, 14mg x 2 weeks and 7mg x 2 weeks #Morbid obesity- Pt BMI is 48.7, and sedentary lifestyle as well has diet consistent of fast food. Pt is advised to lose weight and adapt to healthy diet. Assessment and plan discussed with my attending physician Dr. Archie Currie (PGY-1)- Internal medicine resident Attending Provider Attestation/Addendum I have personally seen and examined the patient separately on the above date of service and discussed the plan of care with the resident. I reviewed the resident Dr. Pradeep Currie consultation progress note and agree with the resident findings and plan in the note above and have also edited the documentation to reflect my findings and plan. A 58-year-old male with a past medical history of morbid obesity with a BMI of 47, chain smoker with more than [id number] smoking history presented to the emergency department for worsening shortness of breath along with some dry cough. Patient described this is incited shortness of breath over the past few weeks which is initially on exertion now worsening and is present even at rest. Denies any Chest pain chest pressure or palpitations or leg swelling or orthopnea or PND or dizziness or syncope or fall. Denies any kind of fever or chills but he did have some upper respiratory infection over the last week or so and he still has some dry cough with heaving. In the emergency department initial vitals showed heart rate of 137, blood pressure 160/116 mmHg, 95% room air saturations afebrile. Labs showed sodium 142 potassium 4.6 BUN 13 creatinine 1.2 glucose 117, WBC 10, hemoglobin 15 magnesium 1.8, troponins 2 sets negative, LFTs normal. EKG showed atrial fibrillation/flutter with no other acute ST-T changes. Chest x-ray showed some mild pulmonary Bottomer Operator condition. Patient received a total of 25 mg of Cardizem IV at 10 and milligrams and 15 mg. 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 Family history significant for heart disease with triple- vessel bypass and valve replacement for mother as well as diabetes and hypertension. No major surgeries or other past medical history. Assessment and plan: 1. Atrial fibrillation/flutter with RVR-new onset 2. Congestive heart failure exacerbation-new onset 3. Essential hypertension uncontrolled 4. Morbid obesity 5. Chronic active smoker with more than [id number] smoking history Atrial fibrillation with RVR-patient is a 25 mg of IV diltiazem in the emergency room initially 10 Mg and later 15 Mg. Recommend to start the patient on diltiazem drip IV at 5 mg/h and uptitrated to 10 mg/h and 15 mg/h based on the blood pressure. Will eventually transition to Cardizem CD or metoprolol XL based on the echocardiogram. Chads Vascor for the patient is to be considered new onset CHF as well as essential hypertension otherwise 1 even with essential hypertension. Patient's weight is 149 kg and recommend to start anticoagulation Eliquis 5 mg twice daily for now. New onset CHF exacerbation-proBNP was 212 patient is morbidly obese and proBNP is elevated and not low which is typical for patients with morbid obesity. Chest x-ray did show mild vascular congestion. Patient started on Lasix 40 mg IV once daily for now and will monitor his improvement. Strict input output, daily weights and 2 g sodium diet. Echocardiogram ordered for further evaluation of systolic versus diastolic CHF with right ventricular failure. Check TSH free T4 and lipid profile for further cardiac restratification. Essential hypertension:-New onset-patient with no previous history of hypertension but blood pressure has been elevated since admission initial blood pressure was 160/111 mmHg. Will start the patient on diltiazem drip for now and high blood pressure room for the rate control and then patient can be started on rest of the medications. If rate is well-controlled and blood pressure is still high then Patient is started on DUDLEY or ARB. Morbid obesity-patient control regarding weight loss and healthy cardiac diet Chronic active smoker with more than [id number] smoking history-patient has been counseled extensively to quit smoking completely and started on a nicotine patch. Management of rest of the medical conditions as per primary team and other consultants. Thank you for the consult and allowing me to participate in the care of the patient. Cardiology will continue to follow. Luis Almanza M.D. Interventional Cardiology
[2024-04-30] MEDS: DILTIAZEM INJ 125 MG in DEXTROSE 5%-WATER 100 ML 10 MG IV (10:22)
[2024-04-30] MEDS: AZITHROMYCIN INJ 250 MG in SODIUM CHLORIDE 0.9% 250 ML 250 ML IV (10:24)
--- NOTE | 2024-04-30 10:45 | ESPR_ITS ---
<Statement entered by Armand Hernández MD - 04/30/24 17:35> Documentation for date of: 04/30/24 Subjective Subjective Interval history: Patient was seen and examined at bedside this AM. No acute events overnight. Patient tolerating diet, adequate urine output and mentation is at baseline. Patient endorses improvement of SOB, now sats 95-96% on RA Tele shows HR 130s --> 70-80bpm , in sinus rhythm. Cardiology increased Dilt gtt from 5mcg -> 10mcg/hr Exam Vital Signs Temp Pulse Resp BP Pulse Ox O2 Del Method 97.0 F 70 20 123/90 H 93 L Room Air 04/30/24 08:00 04/30/24 10:22 04/30/24 08:00 04/30/24 10:22 04/30/24 08:00 04/30/24 08:00 Narrative Exam Constitutional Alert, oriented x4 and comfortable on RA. Obese BMI 49 HEENT Vision grossly intact. Patent nares. Trachea midline. Respiratory Chest normal on inspection and soft bi-basilar crackles on auscultation. Cardiovascular S1 and S2 audible, RRR. No murmurs or carotid bruit. No gross JVD. Abdominal Soft, distended and non tender to palpation in all quadrants. BS + Genitourinary No bladder tenderness, no flank pain. Normal to palpation. Musculoskeletal Extremities tone within normal limits. 1+ LE edema. Neurological CN II - XII grossly intact. Extremity motor and sensation grossly intact. Skin Warm, dry and intact. No apparent lesions. Psychiatric Patient has a good affect, is cooperative. Objective Labs 05/01/24 04:30 05/01/24 04:30 Labs: Laboratory Results - last 24 hr 04/29/24 04/30/24 09:22 04:35 WBC 9.9 RBC 5.07 Hgb 15.3 Hct 47.8 MCV 94 MCH 30.2 MCHC 32.0 RDW Std Deviation 49.0 H Plt Count 161 D Neut % (Auto) 80 Lymph % (Auto) 17 Pierce % (Auto) 3 Eos % (Auto) 0 Baso % (Auto) 0 Neut # (Auto) 7.9 H Lymph # (Auto) 1.7 Pierce # (Auto) 0.3 Eos # (Auto) 0.0 Baso # (Auto) 0.0 Immature Gran # (Auto) 0.03 H Absolute Nucleated RBC 0.00 Immature Gran % 0 Nucleated RBC % 0 PT 11.5 INR 1.1 APTT 29.8 Sodium 138 Potassium 4.7 Chloride 105 Carbon Dioxide 28.0 Anion Gap 5 L BUN 14 Creatinine 0.9 Estim Creat Clear Calc 127.8 eGFR > 60 BUN/Creatinine Ratio [address] Glu mg/dL 114 Hemoglobin A1c 5.6 Calculated Osmolality 277 Calcium 9.3 Corrected Calcium 9.3 Phosphorus 4.2 Magnesium 2.3 Total Bilirubin 0.3 AST 18 ALT 23 Alkaline Phosphatase 96 B-Natriuretic Peptide 212 H Total Protein 7.4 Albumin 4.5 Globulin 2.9 Albumin/Globulin Ratio 1.6 Triglycerides 60 Cholesterol 136 LDL Cholesterol, Calc 88 HDL Cholesterol 36 L Cholesterol/HDL Ratio 3.8 L TSH 0.81 Quality Measures Quality Measures none Assessment & Plan Assessment Current Active Medications: Generic Name Dose Route Start Last Admin Trade Name Freq PRN Reason Stop Dose Admin Acetaminophen 650 mg 04/29/24 18:27 Acetaminophen 325 Mg Tablet PO 05/29/24 18:26 Q6H PRN Fever >100 or pain 1-3 Apixaban 5 mg 04/29/24 21:00 04/30/24 08:06 Apixaban 2.5 Mg Tablet PO 05/29/24 20:59 5 mg BID DUSTY Administration Furosemide 40 mg 04/29/24 18:45 04/30/24 08:05 Furosemide Inj 10 Mg/Ml 4ml Vial IVP 05/29/24 18:44 40 mg QDAY DUSTY Administration Azithromycin 250 mg/ Sodium 250 mls @ 250 mls/hr 04/29/24 18:40 04/30/24 10:24 Chloride IV 05/06/24 18:39 250 mls/hr QDAY DUSTY Administration Diltiazem HCl 125 mg/ Sodium 125 mls @ 10 mls/hr 04/30/24 10:41 Chloride IV 05/30/24 08:47 .[id number] DUSTY 10 MG/HR Ipratropium [place] 0.5 mg 04/30/24 09:16 Ipratropium Rt 0.5 Mg/ 2.5 Ml Nebu INH 05/29/24 18:59 Q4HRRT PRN SHORTNESS OF BREATH OR WHEEZE Protocol Levalbuterol HCl 1.25 mg 04/30/24 09:14 Levalbuterol Rt 1.25 Mg/0.5 Ml Nebu INH 05/29/24 18:59 Q6HRRT PRN SHORTNESS OF BREATH OR WHEEZE Protocol Methylprednisolone Sodium Succinate 40 mg 04/29/24 18:45 04/30/24 08:05 Methylprednisolone Sod Succ 40 Mg Vial IVP 05/06/24 18:44 40 mg QDAY DUSTY Administration Ondansetron HCl 4 mg 04/29/24 18:27 Ondansetron Inj 2 Mg/Ml Inj 2 Ml IV 05/29/24 18:26 Q6H PRN NAUSEA OR VOMITING Protocol Sodium Chloride 3 ml 04/29/24 18:27 Sodium Chloride Rt Areli 0.9% 3 Ml Nebu INH 05/29/24 18:26 PRN PRN SOLN Plan Mr Ge is a 58 y/o male with past medical history of morbid obesity who was admitted for A-fib with RVR and possible COPD exacerbation. Acute dyspnea Secondary to COPD exacerbation Obesity hypoventilation syndrome Patient does have extensive smoking history roughly 90 pack years Patient does not use oxygen at home Patient does seem to be wheezing on physical exam Patient has been getting more short of breath Patient will need formal PFT for diagnosis Lungs did not seem hyperexpanded on chest x-ray Plan: - Continue Solu-Medrol 40 mg IV daily - Oxygen as needed, goal sats 88 to 92% - PRN Levalbuterol/ipratropium from nebulizer breathing treatments - Received IV Azithromycin 500 mg x1 on 04/29 - Continue IV Azithromycin 250 mg (04/30 - A-fib with RVR, new onset - improved - EKG: A. Fib / flutter , HR 110-120s - Type: New onset, persistent - Denies palpitations, chest pain or discomfort. Endorses SOB only - CHADsVASc score = unable to calculate as no PMH - HASBLED score = unable to assess as no PMH - Cardiology was consulted , appreciate recommendations Plan: No PMH, [id number] and HAS-BLED scores likely to be increased once we establish diagnoses Per cardio recs, - Rhythm control: increased IV dilt gtt @ 5 --> 10mcg/h - Anticoagulation: Eliquis 5 mg PO BiD - Continue to monitor Telemetry - Follow-up echo - Keep potassium and magnesium above 4 and 2 respectively to avoid any cardiac arrhythmias Acute decompensation of congestive heart failure, new onset BNP = 212 NYHA class II at baseline 04/30 : net balance = - 1.1 L since admission Plan: ? Continue Lasix 40 mg IV daily ? Cardiology consulted, appreciate recs ? Strict I&O charting ? Daily weights. Fluid restriction to 1500cc ? 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 Pt is heavily counseled against smoking and educated on the harm it causes on his arteries and heart. Plan: - Nicotine patch qD - Consider outpatient Varenicline - Counseled for smoking cessation Health Maintenance Disposition: Telemetry , pending cardiology recommendations and ECHO results DVT prophylaxis: Heparin q12h GI prophylaxis: None indicated at this time Diet: Cardiac , fluid restriction [id number] CODE STATUS: Full code Plan of care discussed with attending Armand Esparza M.D. PGY2 Attending Provider Attestation/Addendum I reviewed labs, imaging, EKG, home medications and prior available records. Face to face evaluation was performed by me. I have personally examined the patient and discussed assessment and plan with the IM team. I reviewed the resident note and agree with the plan with exceptions as below. Atrial fibrillation/flutter with RVR New onset CHF COPD exacerbation Tobacco use Morbid obesity Started diltiazem drip Started Eliquis Continue IV Lasix Continue DuoNebs Continue systemic corticosteroids Ordered echocardiogram Consulted cardiology Counseled the patient regarding the importance of smoking cessation
--- NOTE | 2024-04-30 11:36 | PC.NURSE ---
Called pharmacy for new diltiazem dose. Dae from Pharmacy aware and states we will make it and send it up.
[2024-04-30] MEDS: DILTIAZEM INJ 125 MG in SODIUM CHLORIDE 0.9% 100 ML 10 MG IV ×2 (12:03→23:54)
[2024-05-01] VITALS (9 sets, daily range): BP systolic 123–156; BP diastolic 70–97; PULSE 70–116; RESP 14–93; TEMP 36.2–36.4; O2SAT 93–97; BMI 47.1
[2024-05-01 05:54] LABS: Basophils % (Auto) 0 % (0-2.5); Eosinophils # (Auto) 0.1 Thou/mm3 (0.0-0.5); Eosinophils % (Auto) 1 % (0-10); Hematocrit 46.8 % (41.0-53.0); Hemoglobin 15.4 g/dL (13.5-16.0); Immature Granulocytes % (Auto) 0 % (0-0); Immature Granulocytes Auto 0.03 Thou/mm3 (0.00-0.00); Lymphocytes # (Auto) 4.2 Thou/mm3 (1.0-4.8); Lymphocytes % (Auto) 33 % (10-50); Mean Corpuscular HGB Conc 32.9 g/dl (31.0-37.0); Mean Corpuscular Hemoglobin 30.3 pg (25.0-35.0); Mean Corpuscular Volume 92 fL (80-100); Monocytes # (Auto) 0.7 Thou/mm3 (0.0-0.8); Monocytes % (Auto) 5 % (0-12); Neutrophils # (Auto) 7.9 Thou/mm3 (1.8-7.7); Neutrophils % (Auto) 61 % (37-80); Nucleated Red Blood Cell % 0 /100 WBC (0); Platelet Count 220 Thou/mm3 (140-440); RDW Standard Deviation 47.9 fL (35.1-43.9); Red Blood Count 5.08 Miln/mm3 (4.50-5.90); White Blood Count 12.9 Thou/mm3 (3.8-10.6)
[2024-05-01 06:32] LABS: INR 1.1 (0.9-1.3); Prothrombin Time 11.9 Seconds (9.0-12.2)
[2024-05-01 06:51] LABS: Alanine Aminotransferase 21 U/L (10-49); Albumin, Serum 4.2 gm/dL (3.5-5.0); Albumin/Globulin Ratio 1.6 (1.2-2.2); Alkaline Phosphatase 85 U/L (46-116); Anion Gap 6 (7-16); Aspartate Amino Transferase 13 U/L (0-34); BUN/Creatinine Ratio 19 Ratio (12-20); Bilirubin,Total 0.3 mg/dL (0.3-1.2); Blood Urea Nitrogen 15 mg/dL (9-23); Calcium 8.9 mg/dL (8.3-10.6); Calcium (Corrected) 8.9 mg/dL (8.5-10.1); Carbon Dioxide 27.6 mMol/L (20.0-31.0); Chloride 105 mMol/L (98-107); Creatinine (Component) 0.8 mg/dL (0.6-1.3); Estimated Creatinine Clearance 141.1 mL/min (>60); Globulin 2.7 gm/dL (2.3-3.5); Glucose 98 mg/dL (74-106); Osmolality,Calculated 278 (275-295); Potassium 3.9 mMol/L (3.4-5.1); Sodium 139 mMol/L (136-145); Total Protein 6.9 gm/dL (5.7-8.2); eGFR > 60 See Note
--- NOTE | 2024-05-01 07:22 | ESPR_ITS ---
Documentation for date of: 05/01/24 Subjective Subjective Interval history: 05/01/2024: Pt examined at bedside today. Telemetry reviewed, pt appears to still be in aflutter, rate in 60s and 70s. Pt reports he is doing well. Says that he woke up tired as well. Denies having any chest pain or palpitations. He says his shortness of breath is manageable at this time. No other complaints at this time. BUN/creatinine 15 and 0.8 respectively, glucose 98, magnesium 2.0, phosphorus 4, potassium 3.9, hemoglobin 15, white count 13. Exam Vital Signs Temp Pulse Resp BP Pulse Ox O2 Del Method 97.3 F 70 16 123/84 97 Room Air 05/01/24 04:00 05/01/24 04:00 05/01/24 04:00 05/01/24 04:00 05/01/24 04:00 05/01/24 04:00 Narrative Exam General: AAOx3, NAD, wearing a hat, pleasant bearded male looks older than he is, morbidly obese HEENT: Moist mucous membranes, conjunctiva clear, EOMI, PERRLA, no teeth, pupillary reflex intact bilaterally Cardiovascular: S1, S2, radial pulses +2 bilat, irregularly irregular, tachycardic Pulmonary: Diffuse wheezing heard throughout lung amanda, no crackles heard on auscultation, no cough was present at the time GI: Bowel sounds present, however patient does feel a bit firm unlikely distended Extremities: No presence of trace or pitting edema in lower extremities bilaterally, dorsalis pedis pulses +2 bilaterally Neuro: AAOx3, no focal motor or sensory deficits in the UE or LE bilat Psych: Good judgement, thought and behavior. Cooperative Objective Labs 05/02/24 05:40 05/02/24 05:40 Labs: Laboratory Results - last 24 hr 04/30/24 05/01/24 04:35 04:30 WBC 12.9 H RBC 5.08 Hgb 15.4 Hct 46.8 MCV 92 MCH 30.3 MCHC 32.9 RDW Std Deviation 47.9 H Plt Count 220 D Neut % (Auto) 61 Lymph % (Auto) 33 [place] % (Auto) 5 Eos % (Auto) 1 Baso % (Auto) 0 Neut # (Auto) 7.9 H Lymph # (Auto) 4.2 [place] # (Auto) 0.7 Eos # (Auto) 0.1 Baso # (Auto) 0.0 Immature Gran # (Auto) 0.03 H Absolute Nucleated RBC 0.00 Immature Gran % 0 Nucleated RBC % 0 PT 11.9 INR 1.1 Sodium 139 Potassium 3.9 D Chloride 105 Carbon Dioxide 27.6 Anion Gap 6 L BUN 15 Creatinine 0.8 Estim Creat Clear Calc 141.1 eGFR > 60 BUN/Creatinine Ratio [address] Glu mg/dL 114 Hemoglobin A1c 5.6 Calculated Osmolality 278 Calcium 8.9 Corrected Calcium 8.9 Phosphorus 4.0 Magnesium 2.0 Total Bilirubin 0.3 AST 13 ALT 21 Alkaline Phosphatase 85 Total Protein 6.9 Albumin 4.2 Globulin 2.7 Albumin/Globulin Ratio 1.6 Quality Measures Quality Measures none Assessment & Plan Assessment Current Active Medications: Generic Name Dose Route Start Last Admin Trade Name Freq PRN Reason Stop Dose Admin Acetaminophen 650 mg 04/29/24 18:27 Acetaminophen 325 Mg Tablet PO 05/29/24 18:26 Q6H PRN Fever >100 or pain 1-3 Apixaban 5 mg 04/29/24 21:00 04/30/24 21:17 Apixaban 2.5 Mg Tablet PO 05/29/24 20:59 5 mg BID DUSTY Administration Furosemide 40 mg 04/29/24 18:45 04/30/24 08:05 Furosemide Inj 10 Mg/Ml 4ml Vial IVP 05/29/24 18:44 40 mg QDAY DUSTY Administration Azithromycin 250 mg/ Sodium 250 mls @ 250 mls/hr 04/29/24 18:40 04/30/24 10:24 Chloride IV 05/06/24 18:39 250 mls/hr QDAY DUSTY Administration Diltiazem HCl 125 mg/ Sodium 125 mls @ 10 mls/hr 04/30/24 10:41 04/30/24 23:54 Chloride IV 05/30/24 08:47 10 mg/hr .[id number] DUSTY 10 mls/hr Administration 10 MG/HR Ipratropium [place] 0.5 mg 04/30/24 09:16 Ipratropium Rt 0.5 Mg/ 2.5 Ml Nebu INH 05/29/24 18:59 Q4HRRT PRN SHORTNESS OF BREATH OR WHEEZE Protocol Levalbuterol HCl 1.25 mg 04/30/24 09:14 Levalbuterol Rt 1.25 Mg/0.5 Ml Nebu INH 05/29/24 18:59 Q6HRRT PRN SHORTNESS OF BREATH OR WHEEZE Protocol Methylprednisolone Sodium Succinate 40 mg 04/29/24 18:45 04/30/24 08:05 Methylprednisolone Sod Succ 40 Mg Vial IVP 05/06/24 18:44 40 mg QDAY DUSTY Administration Ondansetron HCl 4 mg 04/29/24 18:27 Ondansetron Inj 2 Mg/Ml Inj 2 Ml IV 05/29/24 18:26 Q6H PRN NAUSEA OR VOMITING Protocol Potassium Chloride 20 meq 05/01/24 07:16 Potassium Chloride 20 Meq Tabcr PO 05/01/24 07:17 X1 ONE Sodium Chloride 3 ml 04/29/24 18:27 Sodium Chloride Rt Areli 0.9% 3 Ml Nebu INH 05/29/24 18:26 PRN PRN SOLN Plan Assessment Joo is a 58 y/o male with past medical history of morbid obesity who was admitted for A-fib with RVR and possible COPD exacerbation. #A-flutter, with 4:1 block #A-fib with RVR, resolved [id number] HAS-BLED:0 Rate:130s Rhythm: Irregularly irregular Echo shows EF of 55 to 60%, diastolic dysfunction present, however cannot determine it at the time due to A-fib Once Dilt drip which was at 10 mg/h, finishes, we will transition to oral Cardizem Patient at this time does not have insurance, will benefit from cardioversion, however will need to decide how long we will keep patient Patient will remain at least 1 more day to see how he tolerates oral Cardizem Pt continues to be in A flutter, 4:1 block rate ~60s, reviewed on telemetry Plan: ? Cardiology consulted, appreciate recs ? Keep potassium and magnesium above 4 and 2 respectively to avoid any cardiac arrhythmias ? Oral Cardizem 240 mg CD ? Continue Eliquis 5 mg BID PO # History of HFpEF, EF 55 to 60% with diastolic dysfunction Echo shows EF of 55 to 60%, diastolic dysfunction present, however cannot determine it at the time due to A-fib Patient does not appear to be in acute decompensation at this time Plan: ?Cardiology consulted, appreciate recs ?Strict JULIANN's ?Daily weights ?Lasix 40 mg IV daily ?Keep potassium and magnesium above 4 and 2 respectively to avoid any cardiac arrhythmias #COPD exacerbation #Obesity hypoventilation syndrome Patient does have extensive smoking history roughly 90 pack years Patient does not use oxygen at home Patient does seem to be wheezing on physical exam Patient has been getting more short of breath Patient will need formal PFT for diagnosis CTA does show some COPD with some areas of airway destruction Patient will let us know if he wants to sleep with CPAP at night Plan: ?Solu-Medrol 40 mg IV daily ?Oxygen as needed to maintain 88 to 92% ?Levalbuterol and atrovent PRN for nebulizer breathing treatments ?Last dose of Zithromax today #Active tobacco smoker #Multiple Pulmonary Nodules ~90 Pack year smoking history 4 mm Pulmonary Nodule STEPHANIE 2 mm Pulmonary Nodule RUL 4 mm Pulmonary Nodule RUL Plan: ?Offered Nicotine patch ?Smoking cessation discussed with patient ?Pt would likely benefit from Chantix therapy outpatient ?Recommend 6 month follow up Chest CT w/o contrast #Morbid obesity BMI ~47 Plan: ?Weight and diet counseled with patient ?Pt can benefit from GLP-1 therapy outpatient #Health Maintenance Disposition: Telemetry DVT prophylaxis: Eliquis 5 mg BID GI prophylaxis:None indicated at this time Diet:Cardiac CODE STATUS:Full Patient seen and care discussed with my senior resident, Dr. Hoffman, and my attending physician, Dr. Luis Lomax, PGY-1 Attending Provider Attestation/Addendum I reviewed labs, imaging, EKG, home medications and prior available records. Face to face evaluation was performed by me. I have personally examined the patient and discussed assessment and plan with the IM team. I reviewed the resident note and agree with the plan with exceptions as below. Atrial fibrillation/flutter with RVR New onset CHF COPD exacerbation Tobacco use Morbid obesity Pulmonary nodules Changed to p.o. diltiazem Continue IV Lasix Continue DuoNebs Continue systemic corticosteroids Ordered echocardiogram Consulted cardiology Counseled the patient regarding the importance of smoking cessation Outpatient follow-up with CT in 6 months for the pulmonary nodules
[2024-05-01] MEDS: APIXABAN 2.5 MG TABLET 5 MG PO ×2 (08:41→20:35)
[2024-05-01] MEDS: FUROSEMIDE INJ 10 MG/ML 4ML VIAL 40 MG IVP (08:41)
[2024-05-01] MEDS: AZITHROMYCIN INJ 250 MG in SODIUM CHLORIDE 0.9% 250 ML 250 ML IV (08:42)
[2024-05-01] MEDS: POTASSIUM CHLORIDE 20 mEq TABCR PO (08:44)
--- NOTE | 2024-05-01 10:44 | PC.SS ---
SS met with patient at bedside to complete initial assessment. Patient confirmed demographic information. Patient stated he is independent with ADL completion and ambulation as well. [facility] PCP: None. However, agreed to be referred to [facility] if follow up was needed. Patient is self-pay and reported he is uninsured. Patient stated he has already connected with financial counselor Susannah and will be submitting requested documents at the time of discharge for [employer] application. Medical surrogate decision maker: Raymundo Martel [phone] Discharge plan: Home, self-transport in personal vehicle.
--- NOTE | 2024-05-01 12:21 | ESPR_ITS ---
Documentation for date of: 05/01/24 Subjective Subjective Interval history: 05/01: no acute overnight events. Pt is seen and examined at bedside this morning. Pt is still on diltiazem drip at 10mg/hr. Patient is saturating on room air . patient denies any chest pain, pressure, palpitations, shortness of breath, dizziness or syncopal episodes. Patient expressed he wants to start taking care of himself and wants to get better. This morning labs shows leukocytosis, patient denies any dysuria or hematuria. Potassium this morning is 3.9 and magnesium 2.0. Currently patient has no other complaints. Exam Vital Signs Temp Pulse Resp BP Pulse Ox O2 Del Method 97.2 F 74 15 138/70 H 96 Room Air 05/01/24 08:00 05/01/24 08:41 05/01/24 08:00 05/01/24 08:41 05/01/24 08:00 05/01/24 08:00 Narrative Exam GENERAL: A&Ox3 . Awake, Not in acute distress NEURO: no focal neurological deficits HEENT: Atraumatic, Normocephalic. mucous membranes moist. Eyes open, symmetrical, & clear HEART: Normal Heart Sounds LUNGS: Clear to auscultation with no wheezing or crackles. ABDOMEN: soft, non-distended, non-tender, bowel sounds heard, no guarding or rebound tenderness SKIN: No Rash or ecchymoses EXTREMITIES: No edema, tenderness, able to move all 4 extremities, pedal pulses palpated Objective Labs 05/01/24 04:30 05/01/24 04:30 Labs: Laboratory Results - last 24 hr 05/01/24 04:30 WBC 12.9 H RBC 5.08 Hgb 15.4 Hct 46.8 MCV 92 MCH 30.3 MCHC 32.9 RDW Std Deviation 47.9 H Plt Count 220 D Neut % (Auto) 61 Lymph % (Auto) 33 [place] % (Auto) 5 Eos % (Auto) 1 Baso % (Auto) 0 Neut # (Auto) 7.9 H Lymph # (Auto) 4.2 [place] # (Auto) 0.7 Eos # (Auto) 0.1 Baso # (Auto) 0.0 Immature Gran # (Auto) 0.03 H Absolute Nucleated RBC 0.00 Immature Gran % 0 Nucleated RBC % 0 PT 11.9 INR 1.1 Sodium 139 Potassium 3.9 D Chloride 105 Carbon Dioxide 27.6 Anion Gap 6 L BUN 15 Creatinine 0.8 Estim Creat Clear Calc 141.1 eGFR > 60 BUN/Creatinine Ratio 19 Glucose 98 Calculated Osmolality 278 Calcium 8.9 Corrected Calcium 8.9 Phosphorus 4.0 Magnesium 2.0 Total Bilirubin 0.3 AST 13 ALT 21 Alkaline Phosphatase 85 Total Protein 6.9 Albumin 4.2 Globulin 2.7 Albumin/Globulin Ratio 1.6 Quality Measures Quality Measures none Assessment & Plan Assessment Current Active Medications: Generic Name Dose Route Start Last Admin Trade Name Freq PRN Reason Stop Dose Admin Acetaminophen 650 mg 04/29/24 18:27 Acetaminophen 325 Mg Tablet PO 05/29/24 18:26 Q6H PRN Fever >100 or pain 1-3 Apixaban 5 mg 04/29/24 21:00 05/01/24 08:41 Apixaban 2.5 Mg Tablet PO 05/29/24 20:59 5 mg BID DUSTY Administration Furosemide 40 mg 04/29/24 18:45 05/01/24 08:41 Furosemide Inj 10 Mg/Ml 4ml Vial IVP 05/29/24 18:44 40 mg QDAY DUSTY Administration Diltiazem HCl 125 mg/ Sodium 125 mls @ 10 mls/hr 04/30/24 10:41 04/30/24 23:54 Chloride IV 05/30/24 08:47 10 mg/hr .[id number] DUSTY 10 mls/hr Administration 10 MG/HR Ipratropium [place] 0.5 mg 04/30/24 09:16 Ipratropium Rt 0.5 Mg/ 2.5 Ml Nebu INH 05/29/24 18:59 Q4HRRT PRN SHORTNESS OF BREATH OR WHEEZE Protocol Levalbuterol HCl 1.25 mg 04/30/24 09:14 Levalbuterol Rt 1.25 Mg/0.5 Ml Nebu INH 05/29/24 18:59 Q6HRRT PRN SHORTNESS OF BREATH OR WHEEZE Protocol Methylprednisolone Sodium Succinate 40 mg 04/29/24 18:45 05/01/24 08:41 Methylprednisolone Sod Succ 40 Mg Vial IVP 05/06/24 18:44 40 mg QDAY DUSTY Administration Ondansetron HCl 4 mg 04/29/24 18:27 Ondansetron Inj 2 Mg/Ml Inj 2 Ml IV 05/29/24 18:26 Q6H PRN NAUSEA OR VOMITING Protocol Sodium Chloride 3 ml 04/29/24 18:27 Sodium Chloride Rt Areli 0.9% 3 Ml Nebu INH 05/29/24 18:26 PRN PRN SOLN Plan Mr. Ge is a 58-year-old male with no significant past medical history other than morbid obesity and heavy tobacco dependency presenting to the ED complaining of worsening shortness of breath with mild dry cough. Patient states that he recently noticed that he has been increasingly short of breath especially on exertion however in the last couple days he noticed that he has been also short of breath while resting. Cardiology is consulted for new A-fib with RVR and possible a flutter, Pt is on diltiazam drip at 10mg/hr #A-fib with concurrent A-flutter Pt was initially HR was in the 130's EKG findings and tele montiored reviewed and appears pt remain in Afib with RVR with concurrent a flutter at times. Pt was started on diltiazam drip 5mg/hr yesterday which is increased to 10mg/hr as Pts HR jumps to 150's -keep potassium above 5 and magnesium above 2 at all times. [id number]:0, pt will not require anticoagulation for afib at this time as Pt is at low risk for cardio embolic event. 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 -Pt is started on eliquis 5mg BID PO due to his risk factors. -Pt continues to be in a-flutter, pt does need a cardioversion which is not available until friday. Pt does not want to wait until friday. He doesnt have health insurance, Pt is suggest to follow up out patient to which he has agreed once he figures out the whole insurance ordeal. -current HR is between 60-70if Rate is controlled with 240mg Cardizem then will continue that if it is not then increase it to 360mg. #Acute decompensated heart failure #possible HFpEF- unable to grade due to afib - although pt. doesn't appear to be in fluid overload. there is trace pitting edema bilaterally in lower extremities. Will continue lasix 40mg IV daily. -echo cardiogram done 04/29 findings include: Normal LV size and function. Estimated EF 55-60%. Diastilic dysfunction present but cannot garde due to Afib. Normal RV size and function. Trace TR and MR. Mildly dilated LA. #primary Hypertension -Patient likely had primary hypertension for many years and he did not see a primary care physician for many years due to not having insurance. Current blood pressure readings do indicate patient has high blood pressure- -recommend primary team to start on blood pressure medication as current blood pressure is 156/97 #Tobacco use disorder - -Pt admits to smoking 2 packs/day for 47 years. Pt is heavily counseled against smoking and educated on the harm it causes on his arteries and heart. Nicotine patch is ordered will inpatient. Primary hospitalist team to consider nicotine patch taper upon discharge. 21mg x 2 weeks, 14mg x 2 weeks and 7mg x 2 weeks #Morbid obesity- Pt BMI is 48.7, and sedentary lifestyle as well has diet consistent of fast food. Pt is advised to lose weight and adapt to healthy diet. #pulmonary nodules -chest CTA - noncalcified pulmonary nodules (4 mm in the left upper lobe, 2 mm and 4 mm in the right upper lobe) -Pt is advised to follow up outpatient with primary care physian for further monitoring and work up. -Pt has 90+packs per year smoking history, therefore further work up of pulmonary nodules is important Assessment and plan discussed with my attending physician Dr. Archie Currie (PGY-1)- Internal medicine resident Attending Provider Attestation/Addendum I have personally seen and examined the patient separately on the above date of service and discussed the plan of care with the resident. I reviewed the resident Dr. Pradeep Currie consultation progress note and agree with the resident findings and plan in the note above and have also edited the documentation to reflect my findings and plan. A 58-year-old male with a past medical history of morbid obesity with a BMI of 47, chain smoker with more than [id number] smoking history presented to the emergency department for worsening shortness of breath along with some dry cough. Patient described this is incited shortness of breath over the past few weeks which is initially on exertion now worsening and is present even at rest. Denies any Chest pain chest pressure or palpitations or leg swelling or orthopnea or PND or dizziness or syncope or fall. Denies any kind of fever or chills but he did have some upper respiratory infection over the last week or so and he still has some dry cough with heaving. In the emergency department initial vitals showed heart rate of 137, blood pressure 160/116 mmHg, 95% room air saturations afebrile. Labs showed sodium 142 potassium 4.6 BUN 13 creatinine 1.2 glucose 117, WBC 10, hemoglobin 15 magnesium 1.8, troponins 2 sets negative, LFTs normal. EKG showed atrial fibrillation/flutter with no other acute ST-T changes. Chest x-ray showed some mild pulmonary Med Surg Nurse condition. Patient received a total of 25 mg of Cardizem IV at 10 and milligrams and 15 mg. 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 Family history significant for heart disease with triple- vessel bypass and valve replacement for mother as well as diabetes and hypertension. No major surgeries or other past medical history. Assessment and plan: 1. Atrial fibrillation/flutter with RVR-new onset 2. Congestive heart failure exacerbation-new onset 3. Essential hypertension uncontrolled 4. Morbid obesity 5. Chronic active smoker with more than [id number] smoking history Atrial fibrillation with RVR-patient is a 25 mg of IV diltiazem in the emergency room initially 10 Mg and later 15 Mg. Recommend to start the patient on diltiazem drip IV at 5 mg/h and uptitrated to 10 mg/h and 15 mg/h based on the blood pressure. Will eventually transition to Cardizem CD or metoprolol XL based on the echocardiogram. Chads Vascor for the patient is to be considered new onset CHF as well as essential hypertension otherwise 1 even with essential hypertension. Patient's weight is 149 kg and recommend to start anticoagulation Eliquis 5 mg twice daily for now. New onset CHF exacerbation-proBNP was 212 patient is morbidly obese and proBNP is elevated and not low which is typical for patients with morbid obesity. Chest x-ray did show mild vascular congestion. Patient started on Lasix 40 mg IV once daily for now and will monitor his improvement. Strict input output, daily weights and 2 g sodium diet. Echocardiogram ordered for further evaluation of systolic versus diastolic CHF with right ventricular failure. Check TSH free T4 and lipid profile for further cardiac restratification. Essential hypertension:-New onset-patient with no previous history of hypertension but blood pressure has been elevated since admission initial blood pressure was 160/111 mmHg. Will start the patient on diltiazem drip for now and high blood pressure room for the rate control and then patient can be started on rest of the medications. If rate is well-controlled and blood pressure is still high then Patient is started on DUDLEY or ARB. Morbid obesity-patient control regarding weight loss and healthy cardiac diet Chronic active smoker with more than [id number] smoking history-patient has been counseled extensively to quit smoking completely and started on a nicotine patch. 05/01/2024 Patient seen and examined at the bedside. Telemetry reviewed and patient ventricular rate is around 75 bpm and is in atrial flutter with 4:1 block Patient heart rate better controlled on diltiazem drip 10 mg/h and will transition to oral Cardizem 240 mg once daily for now and will monitor his heart rate on the oral regimen. If the patient heart rate continues to be high or is in RVR then we can increase the diltiazem to 360 mg once daily. Echocardiogram performed 04/30/2024 showed technically difficult study with limited images but normal LV size and function, normal RV size and function. LVEF was 55 to 60% diastolic dysfunction present but could not grade secondary to the A-fib mildly dilated LA and trace MR and TR. Clinically patient had some vascular congestion on the chest x-ray and also had shortness of breath on exertion and proBNP was elevated at 112. Started on Lasix 40 mg IV daily and patient breathing is much better. Will continue IV Lasix for 1 more day and will transition to oral Lasix 20 or 40 mg at the time of discharge. TSH 0.81, HDL 36, LDL 88, total cholesterol 136 TG 60, A1c was 5.6 Patient was recommended KOFFI with cardioversion as he continues to be in atrial flutter with ventricular rate of 75 a beats per minute and patient explained that it would be only done on Friday morning the patient does not want to stay as inpatient until Friday to have the procedure performed. Patient does not have any insurance and recommended make sure that he has insurance in place for which emergency [employer] has been applied over here and to follow-up with primary, fish dressing machine feeder as outpatient for his new onset atrial fibrillation, diastolic CHF or HFpEF and also essential hypertension. Patient will need to be seen by a fish dressing machine feeder for KOFFI with cardioversion at a later point t to attempt to convert him to normal sinus rhythm if he does not wish to stay in the hospital for the procedure until Friday. Management of rest of the medical conditions as per primary team and other consultants. Thank you for the consult and allowing me to participate in the care of the patient. Cardiology will continue to follow. Luis Almanza M.D. Interventional Cardiology
[2024-05-01] MEDS: NICOTINE PATCH 21 MG/24 HR PATCH.TD24 TOP (12:34)
[2024-05-01] MEDS: DILTIAZEM CD 120 MG CAPCR 240 MG PO (13:33)
[2024-05-02] VITALS (8 sets, daily range): BP systolic 119–144; BP diastolic 80–101; PULSE 70–118; RESP 13–96; TEMP 36–36.2; O2SAT 94–99; BMI 47.2
[2024-05-02 06:48] LABS: Basophils % (Auto) 0 % (0-2.5); Eosinophils # (Auto) 0.1 Thou/mm3 (0.0-0.5); Eosinophils % (Auto) 1 % (0-10); Hemoglobin 15.8 g/dL (13.5-16.0); Immature Granulocytes % (Auto) 0 % (0-0); Immature Granulocytes Auto 0.04 Thou/mm3 (0.00-0.00); Lymphocytes # (Auto) 4.4 Thou/mm3 (1.0-4.8); Lymphocytes % (Auto) 34 % (10-50); Mean Corpuscular HGB Conc 32.9 g/dl (31.0-37.0); Mean Corpuscular Hemoglobin 30.3 pg (25.0-35.0); Mean Corpuscular Volume 92 fL (80-100); Monocytes # (Auto) 0.8 Thou/mm3 (0.0-0.8); Monocytes % (Auto) 6 % (0-12); Neutrophils # (Auto) 7.7 Thou/mm3 (1.8-7.7); Neutrophils % (Auto) 59 % (37-80); Nucleated Red Blood Cell % 0 /100 WBC (0); Platelet Count 196 Thou/mm3 (140-440); RDW Standard Deviation 47.6 fL (35.1-43.9); Red Blood Count 5.22 Miln/mm3 (4.50-5.90)
[2024-05-02 06:54] LABS: Alanine Aminotransferase 19 U/L (10-49); Albumin, Serum 4.3 gm/dL (3.5-5.0); Albumin/Globulin Ratio 1.5 (1.2-2.2); Alkaline Phosphatase 87 U/L (46-116); Anion Gap 4 (7-16); Aspartate Amino Transferase 15 U/L (0-34); BUN/Creatinine Ratio 18 Ratio (12-20); Bilirubin,Total 0.4 mg/dL (0.3-1.2); Blood Urea Nitrogen 14 mg/dL (9-23); Carbon Dioxide 28.5 mMol/L (20.0-31.0); Chloride 105 mMol/L (98-107); Creatinine (Component) 0.8 mg/dL (0.6-1.3); Estimated Creatinine Clearance 141.3 mL/min (>60); Globulin 2.8 gm/dL (2.3-3.5); Glucose 98 mg/dL (74-106); Osmolality,Calculated 274 (275-295); Phosphorous 3.8 mg/dL (2.4-5.1); Potassium 4.2 mMol/L (3.4-5.1); Sodium 137 mMol/L (136-145); Total Protein 7.1 gm/dL (5.7-8.2); eGFR > 60 See Note
[2024-05-02 07:01] LABS: INR 1.1 (0.9-1.3); Prothrombin Time 11.9 Seconds (9.0-12.2)
[2024-05-02] MEDS: DILTIAZEM CD 120 MG CAPCR 240 MG PO (08:34)
[2024-05-02] MEDS: APIXABAN 2.5 MG TABLET 5 MG PO (08:34)
[2024-05-02] MEDS: FUROSEMIDE INJ 10 MG/ML 4ML VIAL 40 MG IVP (08:36)
--- NOTE | 2024-05-02 10:19 | ESDS_ITS ---
<Statement entered by Armand Hernández MD - 05/02/24 16:00> Patient was examined with the team including attending physician. Note reviewed, I agree with the discharge plan as documented. - Armand Hernández M.D. PGY2 Planned Discharge Date 05/02/24 DS: Providers Provider Date of admission: 04/29/24 18:00 Primary care physician: Physician No Primary/Family Admitting Provider: Andrés Smith MD Attending Provider on Admission: Andrés Smith MD Consults: 04/29/24 18:39 Consult to Cardiology Stat Comment: Consulting Provider: Luis Almanza 04/30/24 03:11 Referral Respiratory Therapy Routine Comment: Attending Provider on DC: Andrés Smith MD Discharging Provider: Andrés Smith MD DS: Diagnosis Problem List Completed Was Problem List Reviewed/Reconciled?: Yes Hospital Course Hospital Course Hospital course: Joo is a 58 y/o male with past medical history of morbid obesity who was admitted to [facility] on 04/29/2024 for newly diagnosed A-flutter, with 4:1 block and COPD exacerbation. Pt had reported worsening dyspnea that used to be more so on exertion, however it became present at rest. He denied having any chest pain or palpitations at the time. Patient had stated that he does not go to doctors and has been pretty healthy for his whole life. Patient arrived to the ED with a temperature of 98, heart rate of 137, blood pressure of 160/116, saturating at 95% room air. He was worked up and was found to have a sodium of 142, potassium 4.6, bicarb of 27, BUN/creatinine of 13 and 1.2, glucose of 117, white count of 10, hemoglobin 15, magnesium 1.8, AST ALT 20 and 26 respectively, BNP of 212, lipase of 28. Chest x-ray did show some pulmonary edema and vascular congestion as well as early heart failure pattern. EKG was done and showed a flutter pattern with a 2-1 block. A second EKG was obtained which showed A-fib with RVR rate in the 135's. Patient was given Cardizem 10 mg x 1 and then given Cardizem 15 mg x 1. Medicine was consulted and patient was admitted for further evaluation. While admitted, Cardiology was consulted, Dr. Almanza for further workup. Pt had echo done which showed HFpEF with EF to 55-60% with diastolic dysfunction (Grade could not be accurately determined due to aflutter), with normal LV. Pt was put on Diltiazem drip and was uptitrated to 10 mg. After dilt drip was done, he was transitioned to Cardizem 240 mg CD in which this brought pt to A-flutter with 4:1 block. It was discussed with pt to get cardioverted. However, as pt was not having active chest pain at the time, pt preferred to pursue cardioversion outpatient in addition to AC with Eliquis. Pt continued to be treated, was given 3 days of steroids, Lasix (40) and breathing treatments. It was recommended for pt to follow up with his PCP, get outpatient cardiology and take medicines as prescribed. There was some concern for pt having insurance issues and needs to get emergency Medi-Jose, however, he said he would look into it. Pt will need to get formal PFTs for diagnosis of COPD and also consider sleep study for possible OHS/GALA. Upon d/c pt completed a oxygen walking saturation test in which patient maintained oxygen at 93% while walking, goal for oxygen saturation for patient is 88 to 92%, which warranted patient not needing oxygen upon discharge. Take medicines as prescribed Take Eliquis 5 mg BID as this is your blood thinner, this will need to be stopped at some point before cardioversion in the future See PCP within one week for referral to Cardiology to get cardioversion outpatient Consider getting Pulmonary function tests (PFTs) and sleep study for Obstructive sleep apnea or obesity hyporventilation syndrome Return to ER if symptoms worsen or return If you don't have a PCP, please follow up with me Dr. Lomax, or any one of my colleagues (My schedule will be ) [facility], [place] [address]. Please follow up with Quality Review Trainer within one week, Dr. Almanza #A-flutter, with 4:1 block #A-fib with RVR, resolved # History of HFpEF, EF 55 to 60% with diastolic dysfunction #COPD exacerbation #Obesity hypoventilation syndrome #Active tobacco smoker #Multiple Pulmonary Nodules #Morbid obesity Patient seen and care discussed with my senior resident, Dr. Hernández, and my attending physician, Dr. Luis Lomax, PGY-1 Time Spent with Patient Time attestation: Total time spent providing and/or coordinating discharge services: Time spent: Greater than 30 minutes Exam Vital Signs Temp Pulse Resp BP Pulse Ox O2 Del Method 96.8 F 73 20 143/101 H 95 Room Air 05/02/24 08:00 05/02/24 08:36 05/02/24 08:00 05/02/24 08:36 05/02/24 08:00 05/02/24 08:00 Narrative Exam General: AAOx3, NAD, wearing a hat, pleasant bearded male looks older than he is, morbidly obese HEENT: Moist mucous membranes, conjunctiva clear, EOMI, PERRLA, no teeth, pupillary reflex intact bilaterally Cardiovascular: S1, S2, radial pulses +2 bilat, A-flutter 4:1 block Pulmonary: CTAB, no crackles heard on auscultation, no cough was present at the time GI: Bowel sounds present, however patient does feel a bit firm unlikely distended Extremities: No presence of trace or pitting edema in lower extremities bilaterally, dorsalis pedis pulses +2 bilaterally Neuro: AAOx3, no focal motor or sensory deficits in the UE or LE bilat Psych: Good judgement, thought and behavior. Cooperative Discharge Plan Plan Patient Disposition: HOME (Self Care) Patient condition on transfer: Stable Care Plan Goals: Take medicines as prescribed Take Eliquis 5 mg BID as this is your blood thinner, this will need to be stopped at some point before cardioversion in the future See PCP within one week for referral to Cardiology to get cardioversion outp atient Consider getting Pulmonary function tests (PFTs) and sleep study for Obstructive sleep apnea or obesity hyporventilation syndrome Return to ER if symptoms worsen or return If you don't have a PCP, please follow up with me Dr. Lomax, or any one of my colleagues (My schedule will be ) [facility], [place] [address]. Please follow up with Quality Review Trainer within one week, Dr. Almanza Prescriptions/Referrals Prescriptions/Med Rec: New losartan 25 mg tablet 25 mg PO QDAY 30 Days Qty: 30 0RF Trelegy Ellipta 100-62.5-25 mcg blister with device 1 inh inhalation QDAY Qty: 28 0RF furosemide [Lasix] 40 mg tablet 40 mg PO QDAY Qty: 30 0RF diltiazem HCl [Cardizem CD] 240 mg capsule,extended release 24hr 240 mg PO QDAY Qty: 30 0RF nicotine [Nicoderm CQ] 14 mg/24 hr patch 24 hour 14 mg topical 1XD 28 Days Qty: 28 0RF Eliquis 5 mg tablet 5 mg PO BID 30 Days Qty: 60 0RF Referrals: No Primary/Family,Physician [Primary Care Provider] - Patient/Caregiver Discharge Instructions Education Materials: AFL/Afib Print Language: Portuguese Stand Alone Forms: Bessy Award Info., Patient Portal Info Letter Discharge Order Discharge Orders: Discharge (Routine); Ordered 05/02/24 Ordered By: Marty Lomax Quality Discharge Quality Measures VTE prophylaxis (Eliquis ) Attestestation MD Attestation I reviewed labs, imaging, EKG, home medications and prior available records. Face to face evaluation was performed by me. I have personally examined the patient and discussed assessment and plan with the IM team. I reviewed the resident note and agree with the plan with exceptions as below. Atrial fibrillation/flutter with RVR New onset CHF HFrEF COPD exacerbation Tobacco use Morbid obesity Pulmonary nodules Continue p.o. diltiazem. Continue apixaban for the A-fib Continue p.o. Lasix 40 mg daily Added losartan 20 mg daily Trelegy upon discharge Ordered echocardiogram: Showed cardiomyopathy with reduced ejection fraction Outpatient follow-up with cardiology Counseled the patient regarding the importance of smoking cessation Outpatient follow-up with CT in 6 months for the pulmonary nodules Time spent is 40 minutes. More than 50% of the time was spent on patient education and coordination of care.
--- NOTE | 2024-05-02 11:38 | PC.NURSE ---
patient oxyugen saturation on room air - 93% while walking, no sob or distress noted.
[2024-05-02] MEDS: LOSARTAN POTASSIUM 25 MG TABLET PO (12:22)
== END 2024-05-02 15:56 | disposition home or self-care (01) | DRG 201 ==
LOC: SERX 17:33 → SERHOLD 19:04 → S2NX 22:38
PROVIDERS: Emergency Medicine; Nurse Practitioner Family; Student in an Organized Health Care Education/Training Program; Admitting Provider Student in an Organized Health Care Education/Training Program; Emergency Provider Emergency Medicine; Visit Provider Student in an Organized Health Care Education/Training Program
DX: I48.91 Unspecified atrial fibrillation (principal); E66.2 Morbid (severe) obesity with alveolar hypoventilation; J44.1 Chronic obstructive pulmonary disease with (acute) exacerbation; Z68.42 Body mass index [BMI] 45.0-49.9, adult; I11.0 Hypertensive heart disease with heart failure; I50.21 Acute systolic (congestive) heart failure; R05.3 Chronic cough; R91.1 Solitary pulmonary nodule; I48.92 Unspecified atrial flutter; F17.210 Nicotine dependence, cigarettes, uncomplicated; Z71.6 Tobacco abuse counseling; Z59.71 Insufficient health insurance coverage; Z79.899 Other long term (current) drug therapy
CPT/HCPCS: 36415; 71045; 71275; 80053; 80061; 83036; 83690; 83735; 83880; 84100; 84443; 84484; 85025; 85610; 85730; 87400; 87811; 93005; 93306; 94640; 96372; 96374; 96375; 99285; A4649; J0456; J1643; J1940; J2919; J3475; J3490; J7050; Q9967; A9270